=== PATIENT | female | born 1940 | race Caucasian/White ===

== ENCOUNTER 2023-03-25 13:48 | Emergency (ER) | payer MEDICARE, SELFPAY ==
[2023-03-25 14:04] VITALS: BP 132/59; PULSE 60; RESP 16; TEMP 36.6; O2SAT 96
--- NOTE | 2023-03-25 14:22 | ED.GENADULT ---
HPI - General Adult General Chief complaint: Unspecified Stated complaint: Constipation Source: patient, family and RN notes reviewed History of Present Illness HPI narrative: 82 yo F presents to urgent care [facility] complaints of constipation. Pt states her last BM was last week sometime. Pt is also reporting bright red rectal bleeding that started yesterday. Pt states this bleeding occurs every time she sits down on the toilet. Denies any abdominal pain, N/V, fevers, or chills. Pt is eating without difficulty. Last ate waffles this am. Related Data Home Medications Medication Instructions Recorded Confirmed cetirizine 10 mg tablet 10 mg PO DAILY 03/25/23 03/25/23 fluticasone fur. 100 mcg-umeclid 2 inh inhalation DAILY 03/25/23 03/25/23 62.5 mcg-vilant 25 mcg inhalat.powder (Trelegy Ellipta) gabapentin 300 mg capsule 300 mg PO TID 03/25/23 03/25/23 mirtazapine 15 mg tablet 15 mg PO DAILY 03/25/23 03/25/23 montelukast 10 mg tablet 10 mg PO DAILY 03/25/23 03/25/23 nadolol 40 mg tablet 40 mg PO BID 03/25/23 03/25/23 paroxetine HCl 20 mg tablet 20 mg PO DAILY 03/25/23 03/25/23 Allergies Allergy/AdvReac Type Severity Reaction Status Date / Time Penicillins Allergy Intermediate Rash Verified 03/25/23 14:28 Sulfa (Sulfonamide Allergy Intermediate Rash Verified 03/25/23 14:29 Antibiotics) Review of Systems Review of Systems: CONSTITUTIONAL: Denies fever, chills, or sweats. EYES: Denies visual changes, redness, or discharge. ENT: Denies otalgia and sore throat CARDIOVASCULAR: Denies chest pain, palpitations, or edema. RESPIRATORY: Denies cough or dyspnea. GASTROINTESTINAL: Denies abdominal pain, nausea, vomiting, or diarrhea. Reports constipation and rectal bleeding GENITOURINARY: Denies dysuria or hematuria. SKIN: Denies rash or itching. MUSCULOSKELETAL: Denies back pain, joint pain, or myalgia. NEUROLOGIC: Denies headache, numbness, or weakness. Pertinent positives per HPI. PMFSH Comments At the time of my signature, I reviewed and agree with the nursing past medical, surgical, social, and family history. There is no relevant family history pertinent to the patient complaint. Exam Narrative: GENERAL: This is a well-nourished, well-developed patient, in no apparent distress. HEAD: normocephalic, atraumatic. EYES: Sclera clear/white. Vision is grossly intact. EARS: External ears normal, auditory canals clear and without drainage. Hearing grossly intact. NOSE: External nose normal with no obvious nasal discharge, nares without redness, no rhinorrhea. THROAT: Mucous membranes moist, posterior pharynx clear. NECK: Neck supple, non-tender without lymphadenopathy, masses or thyromegaly. CARDIOVASCULAR: Regular rate and rhythm without murmurs, gallops, or rubs. RESPIRATORY: Clear to auscultation. Breath sounds equal bilaterally. No wheezes, rales, or rhonchi. GASTROINTESTINAL: Abdomen soft, non-tender, nondistended. Bowel sounds are absent. No hepato-splenomegaly, or palpable masses. No guarding. SKIN: warm, intact with no suspicious lesions or rash, good texture and turgor. NEURO: awake, alert, and oriented to person, place and time. There were no obvious focal neurologic abnormalities. Course Course Level of Care: Express Care Visit Vital Signs Vital signs: Vital Signs Temperature 97.9 F 03/25/23 14:04 Pulse Rate 60 03/25/23 14:04 Respiratory Rate 16 03/25/23 14:04 Blood Pressure 132/59 L 03/25/23 14:04 Pulse Oximetry 96 03/25/23 14:04 Oxygen Delivery Nasal Cannula 03/25/23 14:04 Oxygen Flow Rate 2.5 03/25/23 14:04 Temperature 97.9 F 03/25/23 14:04 Pulse Rate 60 03/25/23 14:04 Respiratory Rate 16 03/25/23 14:04 Blood Pressure 132/59 L 03/25/23 14:04 Pulse Oximetry 96 03/25/23 14:04 Oxygen Delivery Nasal Cannula 03/25/23 14:04 Oxygen Flow Rate 2.5 03/25/23 14:04 Reviewed Medical Decision Making MDM Narrative Medical decision making narrat
== END 2023-03-25 14:35 | disposition short-term general hospital (02) ==
PROVIDERS: Emergency Provider Nurse Practitioner Family; PCP Internal Medicine
DX: K62.5 Hemorrhage of anus and rectum (principal); K59.00 Constipation, unspecified
CPT/HCPCS: 99212; G0463

== ENCOUNTER 2023-12-18 16:30 | Inpatient (IN) | payer MEDICARE, SELFPAY ==
[2023-12-18] VITALS (9 sets, daily range): BP systolic 64–106; BP diastolic 38–52; PULSE 66–73; RESP 14–19; TEMP 36.3–36.7; O2SAT 97–100; BMI 21.3
--- NOTE | ~2023-12-18 | CT_ITS ---
Clinical Indication: Shortness of breath CT Scan of the Chest with Contrast: Technique: Contiguous sections were acquired throughout the chest after intravenous administration of 100 cc of Omnipaque 350. Dose reduction technique was used on this scan by utilizing automated expos ure control and iterative reconstruction technique. The dose-length product (DLP) was 187.15 mGy-cm. Findings: There is no evidence of any significant mediastinal, hilar or axillary lymphadenopathy. There is no f illing defect in the pulmonary arterial tree to suggest pulmonary embolus. There is no evidence of ao rtic dissection or aneurysm. There is extensive atherosclerotic change of the aorta and coronary gagandeep mahogany. There is no evidence of pleural or pericardial effusion. 6 mm left upper lobe pulmonary nodule present (axial image 53) this is. There is extensive bronchiect asis, especially the upper lobes. There is probable bibasilar atelectasis. There is extensive groundg lass opacity in the lower lobes, more patchy ground glass opacities in the upper lobes. There are foc al areas of somewhat nodular consolidation in the left lower lobe (image 70 for example), nonspecific .. Images through the upper abdomen reveal no abnormalities. Impression: No evidence of pulmonary embolus, aortic dissection, or aortic aneurysm. Extensive bronchiectasis, especially upper lobes. Extensive groundglass pulmonary opacity, with lower lobe predominance. Findings could reflect bronchi olitis, mild pulmonary edema, hypoventilatory change, asthma, or possibly related to chronic intersti tial disease. Several nodular opacities in the lungs, indeterminate. These could be related to atelectasis, or infe ction. Neoplasm difficult to completely exclude, especially in some of the larger nodule opacities wh ich measure up to 1 cm. Consider follow-up exam after interval therapy, or follow-up CT in 3 months t o reassess these nodules. Reviewed, dictated and finalized at location . R GUIDE Impression: No evidence of pulmonary embolus, aortic dissection, or aortic aneurysm. Extensive bronchiectasis, especially upper lobes. Extensive groundglass pulmonary opacity, with lower lobe predominance. Findings could reflect bronchiolitis, mild pulmonary edema, hypoventilatory change, ast hma, or possibly related to chronic interstitial disease. Several nodular opacities in the lungs, indeterminate. These could be related t o atelectasis, or infection. Neoplasm difficult to completely exclude, especial ly in some of the larger nodule opacities which measure up to 1 cm. Consider fo llow-up exam after interval therapy, or follow-up CT in 3 months to reassess th eros nodules.
--- NOTE | ~2023-12-18 | XR_ITS ---
EXAMINATION: XR chest 1V portable DATE: 12/23/2023 21:31 INDICATION: Cough and shortness of breath TECHNIQUE: frontal view of the chest was obtained. COMPARISON: Chest radiograph dated 12/18/2023 FINDINGS: Similar pattern of diffuse bilateral reticular and mild airspace opacities most prominent in the bila teral lower lung zones and in the paramediastinal upper lung zones. No pleural effusion or pneumothor ax. Heart size is normal. Cholecystectomy clips in right upper quadrant. IMPRESSION: 1. Persistent interstitial and airspace opacities in both lungs which differential would include electrical instrumentation technician sarabjit interstitial lung disease or more acute pulmonary edema or pneumonia. Reviewed, dictated and finalized at location A. E M ASSEMBLER IMPRESSION: 1. Persistent interstitial and airspace opacities in both lungs which different ial would include chronic interstitial lung disease or more acute pulmonary gurjit ma or pneumonia.
--- NOTE | ~2023-12-18 | XR_ITS ---
EXAMINATION: XR chest 1V portable Exam Date/Time: 12/18/2023 17:40 COMMERCIAL DRIVER HISTORY: weak Comparison: None. RESULT: Lines, tubes, and devices: None. Lungs and pleura: Moderate diffuse reticular opacities. Subsegmental right basilar airspace disease. Mild right lateral costophrenic angle blunting. Cardiomediastinal silhouette: Stable. Other: No acute osseous or upper abdominal finding. IMPRESSION: Subsegmental right basilar atelectasis/pneumonia. Possible small right pleural effusion. Interstitial lung disease, with more without interstitial edema. Reviewed, dictated and finalized at location K. ERCIAL DRIVER
--- NOTE | 2023-12-18 16:36 | ECG_ITS ---
Measurements Intervals [place] Rate: 73 P: 76 MD: 127 QRS: -5 QRSD: 73 T: 43 QT: 365 QTc: 403 Interpretive Statements SINUS RHYTHM INFERIOR INFARCT, AGE INDETERMINATE NONSPECIFIC ST & T-WAVE ABNORMALITY- ANTEROLAT/HIGH LAT LEADS BASELINE ARTIFACT- I, II, III, AVR, AVL, AVF, V2-V3 ABNORMAL ECG NO PREVIOUS ECG AVAILABLE FOR COMPARISON Electronically Signed On 12-18-2023 19:27:23 CAN TENDER by Rashel Main D.O.
[2023-12-18 16:48] LABS: Basophils Absolute Auto 0.1 K/mm3 (0.0-0.1); Basophils Percent Auto 0.4 % (0.2-1.2); Eosinophils Absolute Auto 0.3 K/mm3 (0-0.3); Eosinophils Percent Auto 1.7 % (0-4.4); Hematocrit 41.4 % (37.0-47.0); Hemoglobin 13.1 g/dL (12.0-15.0); Immature Granulocyte Percent A 0.6 % (0-0.5); Lymphocytes Absolute Auto 2.01 K/mm3 (0.9-3.2); Lymphocytes Percent Auto 12.4 % (18.3-44.2); Mean Corpuscular HGB Conc 31.6 g/dl (32-36); Mean Corpuscular Hemoglobin 30.7 pg (26-34); Mean Platelet Volume 9.8 fl (7.4-10.4); Monocytes Absolute Auto 2.1 K/mm3 (0.1-0.6); Neutrophils Absolute Auto 11.6 K/mm3 (1.3-6.7); Neutrophils Percent Auto 71.9 % (45.5-73.1); Platelet Count Result 331 k/mm3 (150-375); Red Blood Count 4.27 M/mm3 (4.2-5.4); Red Cell Distribution Width 12.8 % (11.5-14.5); White Blood Count 16.2 K/mm3 (4.5-10.0)
[2023-12-18 17:02] LABS: Alanine Aminotransferase 20 U/L (6-35); Albumin Level 3.8 g/dL (3.5-5.1); Alkaline Phosphatase 66 U/L (38-126); Anion Gap 7 mmol/L (8-16); Aspartate Amino Transferase 32 U/L (14-36); Bilirubin,Total 1.2 mg/dL (0.2-1.3); Blood Urea Nitrogen 43 mg/dL (7-17); Calcium 9.1 mg/dL (8.4-10.2); Carbon Dioxide 35 mmol/L (22-30); Chloride 91 mmol/L (98-107); Estimated CRCL calculation 28 ml/min; Estimated Glomerular Filt Rate 43; Glucose 111 mg/dL (65-110); Sodium 133 mmol/L (137-145)
[2023-12-18 17:12] LABS: Lactic Acid Reflex 2.1 mmol/L (0.7-2.0)
--- NOTE | 2023-12-18 17:20 | ED.GENADULT ---
HPI - General Adult General Chief complaint: Weakness Stated complaint: weakness Time Seen by Provider: 12/18/23 16:31 History of Present Illness HPI narrative: Patient is an 83-year-old female who presents ER with weakness. Unable stand up out of bed to use her Rollator today. Patient had recent diagnosis of pneumonia and was placed in rehab after hospitalization. No chest pain or chest pressure. No fevers chills or sweats. She does have some heart dyspnea. Blood pressure low her EMS and 70s. Currently 88/47. Related Data Home Medications Medication Instructions Recorded Confirmed budesonide 0.5 mg/2 mL suspension 0.5 mg inhalation DAILY 03/25/23 03/25/23 for nebulization cetirizine 10 mg tablet 10 mg PO DAILY 03/25/23 03/25/23 fluticasone fur. 100 mcg-umeclid 2 inh inhalation DAILY 03/25/23 03/25/23 62.5 mcg-vilant 25 mcg inhalat.powder (Trelegy Ellipta) formoterol fumarate 20 mcg/2 mL 2 ml inhalation BID 03/25/23 03/25/23 solution for nebulization (Perforomist) gabapentin 300 mg capsule 300 mg PO TID 03/25/23 03/25/23 mirtazapine 15 mg tablet 15 mg PO DAILY 03/25/23 03/25/23 montelukast 10 mg tablet 10 mg PO DAILY 03/25/23 03/25/23 nadolol 40 mg tablet 40 mg PO BID 03/25/23 03/25/23 paroxetine HCl 20 mg tablet 20 mg PO DAILY 03/25/23 03/25/23 revefenacin 175 mcg/3 mL solution 175 mcg inhalation DAILY 03/25/23 03/25/23 for nebulization (Arunai) Allergies Allergy/AdvReac Type Severity Reaction Status Date / Time Penicillins Allergy Intermediate Rash Verified 03/25/23 14:28 Sulfa (Sulfonamide Allergy Intermediate Rash Verified 03/25/23 14:29 Antibiotics) Review of Systems Review of Systems: All systems reviewed & are unremarkable except as noted in HPI and below Constitutional: Constitutional: Denies chills, Reports fatigue, Denies fever(s) and Reports weakness ENT: Denies nasal congestion and Denies sore throat Cardiovascular: Cardiovascular: Denies chest pain, Denies rapid heart rate and Denies radiating jaw, neck or arm pain Respiratory: Respiratory: Reports cough, Denies dyspnea and Denies wheezing Comments: chronically O2 dependent Gastrointestinal: Gastrointestinal: Reports no additional gastrointestinal complaints Genitourinary: Genitourinary: Reports no additional female genitourinary complaints PMFSH Past Medical History Medical History (Updated 12/18/23 @ 19:08 by Carmelo Sandhu MD) CHF (congestive heart failure) COPD (chronic obstructive pulmonary disease) Hypertension Myocardial infarction Paroxysmal A-fib Pulmonary hypertension Spinal stenosis Exam Narrative: GENERAL: Chronically ill-appearing, well-nourished, and in no acute distress. HEAD: Normocephalic, atraumatic. ENT: Mucous membranes moist. NECK: Supple. CHEST: Coarse rales with wheezing bilaterally. No respiratory distress. HEART: Regular rate and rhythm. Normal peripheral pulses. ABDOMEN: Soft, nontender, nondistended. EXTREMITIES: Normal range of motion. No edema. SKIN: Warm, dry, no rash. NEURO: Alert and oriented x3. PSYCH: Normal mood and affect. Course Course Emergency Course: Patient leak cautiously hydrated given history of heart failure. Patient is fluid responsive after 1 L and has blood pressure 106/47 mm Hg. She will be started on some maintenance fluids and admitted for observation and breathing treatments. Patient reports she is a DNR and would not want CPR, a ventilator, or central line should her condition deteriorate. Vital Signs Vital signs: Vital Signs Temperature 97.7 F 12/18/23 16:55 Pulse Rate 67 12/18/23 16:55 Respiratory Rate 18 12/18/23 16:55 Blood Pressure 64/45 L 12/18/23 16:55 Pulse Oximetry 98 12/18/23 16:55 Oxygen Delivery Nasal Cannula 12/18/23 16:55 Oxygen Flow Rate 3 12/18/23 16:55 Temperature 97.7 F 12/18/23 19:02 Pulse Rate 67 12/18/23 19:02 Respiratory Rate 15 12/18/23 19:02 Blood Pressure 10
[2023-12-18 17:27] LABS: NT Pro B Type Natriuretic Pept 1410 pg/mL (19.9-100)
[2023-12-18] MEDS: SODIUM CHLORIDE 0.9% IV 500 ML 999 ML IV CONT ×2 (17:28→18:33)
[2023-12-18 17:41] LABS: Appearance Urine Clear (Clear); Bacteria Urine None Seen /hpf; Bilirubin Urine Negative (Negative); Blood Urine Negative (Negative); Color Urine Yellow (Yellow); Glucose Urine UA 3+ mg/dL (Negative); Ketones Urine Negative (Negative); Leukocyte Esterase Ur Negative LEU/UL (Negative); Need Manual Microscopic Reviewed; Nitrate Urine Negative (Negative); Protein Urine Trace mg/dL (Negative); RBC Urine 0-2 /hpf (0-2); Specific Grav Ur 1.017 (1.001-1.035); Squamous Epithelial Cell Urine None seen /hpf (Few); Urobilinogen Urine 0.2 mg/dL (<2.0); WBC Urine 0-5 /hpf
[2023-12-18 17:42] LABS: Add Urine Microscopic? YES
[2023-12-18 17:55] LABS: Influenza A QL RT-PCR Negative (Negative); Influenza B QL RT-PCR Negative (Negative); RSV RNA, RT-PCR Negative (Negative); SARS-CoV-2 RNA PCR Negative (Negative)
--- NOTE | 2023-12-18 19:29 | PM.IMHP ---
H&P: HPI History of Present Illness Date/Time: 12/18/23 19:29 Chief Complaint: Generalized weakness Narrative: 83-year-old female presents to the ED with generalized weakness, she says she is unable to stand out of bed to use higher later today, she recent had a diagnosis of pneumonia was placed on route of the hospitalization, she reported occasional diarrhea, no abdominal pain, no fever chills. Reports poor oral intake and poor hydration. She was evaluated in the ER [place] [address], lactic acid of 2.1 with no specific findings on chest x-ray which was interpreted atelectasis versus pneumonia. She has been started on IV hydration, and a request for admission for further hydration was placed as patient blood pressure is borderline low Review of Systems Review of Systems: All systems reviewed & are unremarkable except as noted in HPI and below PMFSH Past Medical History Medical History (Updated 12/18/23 @ 21:25 by Batool Freeman MD) CHF (congestive heart failure) COPD (chronic obstructive pulmonary disease) Hypertension Myocardial infarction Paroxysmal A-fib Pulmonary hypertension Spinal stenosis Family History Family History (Updated 12/18/23 @ 20:57 by Vignesh Munson RN) Father Heart attack Mother Alzheimer's dementia Sibling Alzheimer's dementia Heart attack Social History Social History Smoking packs per day: 0.1 Smoking cigarettes per day: 2.0 Years smoked: 15 Smoking pack-years: 1.50 Smoking status: Former smoker Tobacco type: cigarettes Alcohol intake: never Substance use: never Do You Feel Safe in your Home?: Yes Lack of Transportation: No Lack of Food: Never True Current Housing: I Have Housing Concerned About Future Housing: No Difficulty Paying Gas/Electric Bills: No Difficulty Paying for Meds: No Currently Unemployed: No Education: Never Attended/Kindergarten Only Difficulty w/ Childcare or Family Care: No Spiritual care concerns: No Meds Home Medications and Allergies Home Medications Medication Instructions Recorded Confirmed Type cetirizine 10 mg tablet 10 mg PO DAILY 03/25/23 12/18/23 History fluticasone fur. 100 mcg-umeclid 2 inh inhalation DAILY 03/25/23 12/18/23 History 62.5 mcg-vilant 25 mcg inhalat.powder (Trelegy Ellipta) gabapentin 300 mg capsule 300 mg PO TID 03/25/23 12/18/23 History mirtazapine 15 mg tablet 30 mg PO DAILY 03/25/23 12/18/23 History montelukast 10 mg tablet 10 mg PO DAILY 03/25/23 12/18/23 History nadolol 40 mg tablet 40 mg PO BID 03/25/23 12/18/23 History paroxetine HCl 20 mg tablet 40 mg PO DAILY 03/25/23 12/18/23 History B12 1,000 mcg PO DAILY 12/18/23 12/18/23 History Daily Multivitamin 1 tablet PO DAILY 12/18/23 12/18/23 History Entresto 24 - 26 mg PO Q12H 12/18/23 12/18/23 History Jardiance 10 mg PO DAILY 12/18/23 12/18/23 History Mucinex 600 mg PO Q12H PRN Congestion 12/18/23 12/18/23 History Protonix 40 mg PO DAILY 12/18/23 12/18/23 History acetaminophen 650 mg PO Q8H PRN Pain (Scale 12/18/23 12/18/23 History Score 1-3) azelastine 137 mcg (0.1 %) nasal 137 mcg intranasal BID 12/18/23 12/18/23 History spray aerosol empagliflozin 10 mg tablet 10 mg PO DAILY 12/18/23 12/18/23 History (Jardiance) ipratropium-albuterol 0.5 - 3 mg inhalation QID 12/18/23 12/18/23 History megestrol 400 mg/10 mL (10 mL) 400 mg PO BID 12/18/23 12/18/23 History oral suspension metolazone 2.5 mg tablet 2.5 mg PO DAILY 12/18/23 12/18/23 History ondansetron 4 mg disintegrating 4 mg Q6-8H PRN Nausea And Vomiting 12/18/23 12/18/23 History tablet prednisone 10 mg tablet 10 mg PO TID 12/18/23 12/18/23 History Allergies Allergy/AdvReac Type Severity Reaction Status Date / Time Penicillins Allergy Intermediate Rash Verified 12/18/23 20:35 Sulfa (Sulfonamide Allergy Intermediate Rash Verified 12/18/23 20:35 Antibiotics) Vital Signs Vital Signs - 24 hr 12/18/23 16:55
[2023-12-18 20:03] LABS: Reflex Lactic Acid Yes or No Add Lactic
--- NOTE | 2023-12-18 20:15 | ADMGEN ---
This patient, Leonie Kiser, was admitted to Medical Room 246-. Patient/family oriented to hospital policies and general routines including ID bracelet, bed and alarms, visiting hours, pain management, procedures, bathroom and other care routines, personal items, smoking policy, room service/diet, and visiting hours. Information on how to activate the Rapid Response Team has been discussed. Patient/Family are encouraged to report perceived risks to care and to ask questions if they do not understand what they are told or what they should do.
[2023-12-18] MEDS: SODIUM CHLORIDE 0.9% IV 1,000 ML 150 ML IV CONT (21:22)
[2023-12-18] MEDS: levoFLOXacin 750 MG/D5W 150 ML 750 MG/150 ML BAG 100 MG IVPB (21:30)
[2023-12-18 22:15] LABS: Lactic Acid 1.2 mmol/L (0.7-2.0); Magnesium 2.2 mg/dL (1.6-2.3)
[2023-12-18 22:28] LABS: Troponin I 0.019 ng/mL (0.000-0.034)
[2023-12-18] MEDS: ACETAMINOPHEN 325 MG TABLET 650 MG PO (22:54)
[2023-12-19] VITALS (15 sets, daily range): BP systolic 93–107; BP diastolic 35–52; PULSE 66–84; RESP 12–18; TEMP 36.4–36.6; O2SAT 95–100
[2023-12-19] MEDS: CYANOCOBALAMIN 1,000 MCG TABLET 1000 MCG PO (08:28)
[2023-12-19] MEDS: SACUBITRIL/VALSARTAN 24-26 MG TABLET 1 TAB PO ×2 (08:28→20:06)
[2023-12-19] MEDS: MONTELUKAST SODIUM 10 MG TABLET PO (08:28)
[2023-12-19] MEDS: metOLazone 2.5 MG TABLET PO (08:28)
[2023-12-19] MEDS: EMPAGLIFLOZIN 10 MG TABLET PO (08:28)
[2023-12-19] MEDS: GABAPENTIN 300 MG CAPSULE PO ×3 (08:28→16:16)
[2023-12-19] MEDS: MEGESTROL ACETATE (*CHEMO) ORAL SUSP 40 MG/ML SYR 400 MG PO ×2 (08:28→16:16)
[2023-12-19] MEDS: LORATADINE 10 MG TABLET PO (08:28)
[2023-12-19] MEDS: PANTOPRAZOLE 40 MG TABLET PO (08:28)
[2023-12-19] MEDS: ACETAMINOPHEN 325 MG TABLET 650 MG PO (08:36)
--- NOTE | 2023-12-19 08:50 | PM.IMPN ---
Progress Note: A&P Assessment and Plan (1) Pneumonia: Code(s): J18.9 - Pneumonia, unspecified organism Status: Acute Assessment and Plan: Recent diagnosis for pneumonia CXR showing subsegmental right basilar atelectasis/pneumonia, interstitial lung disease. Patient started on Levaquin while in ER Continue neb treatments Currently on 3L NC (2) Abnormal chest x-ray: Code(s): R93.89 - Abnormal findings on diagnostic imaging of other specified body structures Status: Acute Assessment and Plan: see above (3) CHF (congestive heart failure): Code(s): I50.9 - Heart failure, unspecified Status: Chronic Assessment and Plan: Restarted Jardiance, Metolazone (4) COPD (chronic obstructive pulmonary disease): Code(s): J44.9 - Chronic obstructive pulmonary disease, unspecified Status: Chronic Assessment and Plan: Continue nebulizer breathing treatments (5) Dehydration: Code(s): E86.0 - Dehydration Status: Acute Assessment and Plan: Patient reported not eating or drinking fluids at home B/P initially 54/45, Na+ 133, Chloride 91 Patient given 2L NS and started on IVF (6) Generalized weakness: Code(s): R53.1 - Weakness Status: Acute Assessment and Plan: PT and OT ordered (7) Hypertension: Code(s): I10 - Essential (primary) hypertension Status: Chronic Assessment and Plan: B/P 92/38-107/47 Nadolol on hold Time Spent With Patient Time with patient: 25 - 35 minutes Subjective Date/time seen: 12/19/23 08:50 Interval history: This is an 83 year old female with a significant past medical history of CHF, COPD, HTN, [place], Paroxysmal A-fib, pulmonary hypertension, spinal stenosis who presented to the hospital with complaints of generalized weakness. She was recently diagnosed with pneumonia and reports decreased appetite and fatigue. She was hypotensive on admission, however responded well to fluid resuscitation. Work up in hospital includes CXR which revealed subsegmental right basilar atelectasis vrs pneumonia, interstitial lung disease without edema. Labs revealed WBC 16.2,Na+ 133, Chloride 91, BUN 43, Creatitinine 1.20, eGFR 43, creatinine clearance 28, Lactic acid 2.1>1.2, Liver enzymes were normal, Magnesium 2.2, Troponin negative, proBNP 1410. UA shown 3+ glucose, otherwise unremarkable. Respiratory panel negative for Flu, RSV, Covid. Blood cultures obtained and are pending. Patient was given 2L NS, started on IVF, given zofran, and started on Levaquin in the ER. On examination today patient is alert and oriented x3, sitting in the chair. She denies any fever, chills, chest pain, abdominal pain, nausea, vomiting, diarrhea, or headache. She endorses lightheadedness and dizziness when getting up, shortness of breath and a non productive cough. VSS, she is afebrile, currently on 3L NC. Lungs today course throughout bilaterally. Review of Systems Review of Systems: All systems reviewed & are unremarkable except as noted in HPI and below Constitutional: Constitutional: Reports as per HPI and Reports no additional constitutional complaints Eyes: Eyes: Reports as per HPI and Reports no additional eye complaints ENT: Reports system reviewed and no additional complaints, except as documented and Reports as per HPI Cardiovascular: Cardiovascular: Reports as per HPI and Reports no additional cardiovascular complaints Respiratory: Respiratory: Reports as per HPI and Reports no additional respiratory complaints Gastrointestinal: Gastrointestinal: Reports as per HPI and Reports no additional gastrointestinal complaints Genitourinary: Genitourinary: Reports no additional female genitourinary complaints and Reports as per HPI Musculoskeletal: Musculoskeletal: Reports no additional musculoskeletal complaints and Reports as per HPI Integumentary/Breasts: Skin/Breast: Reports system reviewed and no additio
[2023-12-19] MEDS: FLUTICASONE/UMECLIDIN/VILANTER 100-62.5-25 MCG ELLIPTA 1 PUFF INHALATION (09:54)
[2023-12-19] MEDS: IPRATROPIUM 0.5 MG/ALBUTEROL SULFATE 2.5 MG AMPUL.NEB 3 ML INHALATION ×3 (09:54→20:30)
[2023-12-19] MEDS: MIRTAZAPINE 30 MG TABLET PO (20:06)
[2023-12-19] MEDS: PARoxetine 20 MG TABLET 40 MG PO (20:06)
[2023-12-19] MEDS: AZELASTINE HCL NASAL 0.1% 137 MCG/SPR 30 ML BTL 1 SPRAY NASAL (20:07)
--- NOTE | 2023-12-19 21:14 | PCRCNOTE ---
Patient does not want to be awakened for her 0200 updraft treatment. RT instructed pt to call RN if sob occurs. Pt states she only takes breathing treatments a couple of times while awake at home.
[2023-12-20] VITALS (15 sets, daily range): BP systolic 102–119; BP diastolic 48–55; PULSE 69–86; RESP 16–18; TEMP 36.5–37; O2SAT 90–98; BMI 21.3
[2023-12-20 06:12] LABS: Basophils Percent Auto 0.3 % (0.2-1.2); Eosinophils Absolute Auto 0.2 K/mm3 (0-0.3); Eosinophils Percent Auto 1.3 % (0-4.4); Hematocrit 38.3 % (37.0-47.0); Hemoglobin 12.3 g/dL (12.0-15.0); Immature Granulocyte Absolute 0.07 K/mm3 (0.00-0.031); Immature Granulocyte Percent A 0.5 % (0-0.5); Lymphocytes Absolute Auto 2.95 K/mm3 (0.9-3.2); Mean Corpuscular HGB Conc 32.1 g/dl (32-36); Mean Corpuscular Hemoglobin 31.5 pg (26-34); Mean Corpuscular Volume 98.2 fl (80-100); Mean Platelet Volume 9.5 fl (7.4-10.4); Monocytes Absolute Auto 2.1 K/mm3 (0.1-0.6); Monocytes Percent Auto 13.9 % (2.6-8.5); Neutrophils Absolute Auto 9.5 K/mm3 (1.3-6.7); Platelet Count Result 352 k/mm3 (150-375); Red Cell Distribution Width 12.9 % (11.5-14.5); White Blood Count 14.8 K/mm3 (4.5-10.0)
[2023-12-20 06:48] LABS: Alanine Aminotransferase 17 U/L (6-35); Albumin Level 3.4 g/dL (3.5-5.1); Alkaline Phosphatase 73 U/L (38-126); Anion Gap 7 mmol/L (8-16); Aspartate Amino Transferase 26 U/L (14-36); Bilirubin,Total 0.5 mg/dL (0.2-1.3); Blood Urea Nitrogen 23 mg/dL (7-17); Calcium 8.4 mg/dL (8.4-10.2); Carbon Dioxide 30 mmol/L (22-30); Chloride 101 mmol/L (98-107); Estimated CRCL calculation 44 ml/min; Estimated Glomerular Filt Rate > 60; Glucose 93 mg/dL (65-110); Magnesium 2.2 mg/dL (1.6-2.3); Potassium 3.9 mmol/L (3.4-5.0); Sodium 138 mmol/L (137-145)
--- NOTE | 2023-12-20 07:23 | P.PNIM_ITS ---
Progress Note: A&P Assessment and Plan (1) Pneumonia: Code(s): J18.9 - Pneumonia, unspecified organism Status: Acute Assessment and Plan: * Recent diagnosis for pneumonia * CXR showing subsegmental right basilar atelectasis/pneumonia, interstitial lung disease. * Patient given 1 time dose of IV Levaquin in the ER, doses * Continue neb treatments * Currently on 3L NC * Continue Mucinex, Azelastine, and Trelegy inhaler 12/20/23: * Continue oral Levaquin * Continue current treatment plan (2) Abnormal chest x-ray: Code(s): R93.89 - Abnormal findings on diagnostic imaging of other specified body structures Status: Acute Assessment and Plan: * see above (3) CHF (congestive heart failure): Code(s): I50.9 - Heart failure, unspecified Status: Chronic Assessment and Plan: 12/19/23: * Continue Jardiance, Metolazone, and Sacubitril/Valsartan 12/20/23: * No change to current treatment plan (4) COPD (chronic obstructive pulmonary disease): Code(s): J44.9 - Chronic obstructive pulmonary disease, unspecified Status: Chronic Assessment and Plan: 12/19/23: * Continue nebulizer breathing treatments 12/20/23: * No change to current treatment plan (5) Dehydration: Code(s): E86.0 - Dehydration Status: Acute Assessment and Plan: 12/19/23: * Patient reported not eating or drinking fluids at home * B/P initially 54/45, Na+ 133, Chloride 91 * Patient given 2L NS while in ER and started on IVF 12/20/23: * Encourage food and fluid * continue IVF * No change to current treatment plan (6) Generalized weakness: Code(s): R53.1 - Weakness Status: Acute Assessment and Plan: 12/19/23: * PT and OT ordered 12/20/23: * No change to current treatment plan (7) Hypertension: Code(s): I10 - Essential (primary) hypertension Status: Chronic Assessment and Plan: 12/19/23: * B/P still labile * Continue to hold Nadolol 12/20/23: * No change to current treatment plan Time Spent With Patient Time with patient: 15 - 25 minutes Subjective Date/time seen: 12/20/23 07:23 Interval history: 12/19/23: This is an 83 year old female with a significant past medical history of CHF, COPD, HTN, [place], Paroxysmal A-fib, pulmonary hypertension, spinal stenosis who presented to the hospital with complaints of generalized weakness. She was recently diagnosed with pneumonia and reports decreased appetite and fatigue. She was hypotensive on admission, however responded well to fluid resuscitation. Work up in hospital includes CXR which revealed subsegmental right basilar atelectasis vrs pneumonia, interstitial lung disease without edema. Labs revealed WBC 16.2,Na+ 133, Chloride 91, BUN 43, Creatinine 1.20, eGFR 43, creatinine clearance 28, Lactic acid 2.1>1.2, Liver enzymes were normal, Magnesium 2.2, Troponin negative, proBNP 1410. UA shown 3+ glucose, otherwise unremarkable. Respiratory panel negative for Flu, RSV, Covid. Blood cultures obtained and are pending. Patient was given 2L NS, started on IVF, given zofran, and started on Levaquin in the ER. On examination today patient is alert and oriented x3, sitting in the chair. She denies any fever, chills, chest pain, abdominal pain, nausea, vomiting, diarrhea, or headache. She endorses lightheadedness and dizziness when getting up, shortness of breath and a non productive cough. VSS, she is afebrile, currently on 3L NC. Lungs today course throughout bilaterally. 12/20/23: On examin
--- NOTE | 2023-12-20 07:23 | PM.IMPN ---
Progress Note: A&P Assessment and Plan (1) Pneumonia: Code(s): J18.9 - Pneumonia, unspecified organism Status: Acute Assessment and Plan: Recent diagnosis for pneumonia CXR showing subsegmental right basilar atelectasis/pneumonia, interstitial lung disease. Patient given 1 time dose of IV Levaquin in the ER, doses Continue neb treatments Currently on 3L NC Continue Mucinex, Azelastine, and Trelegy inhaler 12/20/23: Continue oral Levaquin Continue current treatment plan (2) Abnormal chest x-ray: Code(s): R93.89 - Abnormal findings on diagnostic imaging of other specified body structures Status: Acute Assessment and Plan: see above (3) CHF (congestive heart failure): Code(s): I50.9 - Heart failure, unspecified Status: Chronic Assessment and Plan: 12/19/23: Continue Jardiance, Metolazone, and Sacubitril/Valsartan 12/20/23: No change to current treatment plan (4) COPD (chronic obstructive pulmonary disease): Code(s): J44.9 - Chronic obstructive pulmonary disease, unspecified Status: Chronic Assessment and Plan: 12/19/23: Continue nebulizer breathing treatments 12/20/23: No change to current treatment plan (5) Dehydration: Code(s): E86.0 - Dehydration Status: Acute Assessment and Plan: 12/19/23: Patient reported not eating or drinking fluids at home B/P initially 54/45, Na+ 133, Chloride 91 Patient given 2L NS while in ER and started on IVF 12/20/23: Encourage food and fluid continue IVF No change to current treatment plan (6) Generalized weakness: Code(s): R53.1 - Weakness Status: Acute Assessment and Plan: 12/19/23: PT and OT ordered 12/20/23: No change to current treatment plan (7) Hypertension: Code(s): I10 - Essential (primary) hypertension Status: Chronic Assessment and Plan: 12/19/23: B/P still labile Continue to hold Nadolol 12/20/23: No change to current treatment plan Time Spent With Patient Time with patient: 15 - 25 minutes Subjective Date/time seen: 12/20/23 07:23 Interval history: 12/19/23: This is an 83 year old female with a significant past medical history of CHF, COPD, HTN, [place], Paroxysmal A-fib, pulmonary hypertension, spinal stenosis who presented to the hospital with complaints of generalized weakness. She was recently diagnosed with pneumonia and reports decreased appetite and fatigue. She was hypotensive on admission, however responded well to fluid resuscitation. Work up in hospital includes CXR which revealed subsegmental right basilar atelectasis vrs pneumonia, interstitial lung disease without edema. Labs revealed WBC 16.2,Na+ 133, Chloride 91, BUN 43, Creatinine 1.20, eGFR 43, creatinine clearance 28, Lactic acid 2.1>1.2, Liver enzymes were normal, Magnesium 2.2, Troponin negative, proBNP 1410. UA shown 3+ glucose, otherwise unremarkable. Respiratory panel negative for Flu, RSV, Covid. Blood cultures obtained and are pending. Patient was given 2L NS, started on IVF, given zofran, and started on Levaquin in the ER. On examination today patient is alert and oriented x3, sitting in the chair. She denies any fever, chills, chest pain, abdominal pain, nausea, vomiting, diarrhea, or headache. She endorses lightheadedness and dizziness when getting up, shortness of breath and a non productive cough. VSS, she is afebrile, currently on 3L NC. Lungs today course throughout bilaterally. 12/20/23: On examination today patient is still reporting that she does not feel good. She states she did not sleep well because she had to get up and urinate often. Lungs today sound a lot better. She still has some crackles in the bases. VSS, she is afebrile, currently on 3L NC. Labs today reveal WBC 14.8, Albumin 3.4, otherwise essentially unremarkable. Blood cultures showing no growth on preliminary read. Continue Levaquin oral for a total of 5 days. Review o
[2023-12-20] MEDS: SACUBITRIL/VALSARTAN 24-26 MG TABLET 1 TAB PO ×2 (08:10→20:55)
[2023-12-20] MEDS: GABAPENTIN 300 MG CAPSULE PO ×3 (08:10→16:55)
[2023-12-20] MEDS: LORATADINE 10 MG TABLET PO (08:10)
[2023-12-20] MEDS: metOLazone 2.5 MG TABLET PO (08:10)
[2023-12-20] MEDS: MONTELUKAST SODIUM 10 MG TABLET PO (08:10)
[2023-12-20] MEDS: PANTOPRAZOLE 40 MG TABLET PO (08:10)
[2023-12-20] MEDS: MEGESTROL ACETATE (*CHEMO) ORAL SUSP 40 MG/ML SYR 400 MG PO ×2 (08:11→16:55)
[2023-12-20] MEDS: CYANOCOBALAMIN 1,000 MCG TABLET 1000 MCG PO (08:11)
[2023-12-20] MEDS: EMPAGLIFLOZIN 10 MG TABLET PO (08:11)
[2023-12-20] MEDS: ENOXAPARIN 40 MG/0.4 ML SYRINGE SUB-Q (08:11)
[2023-12-20] MEDS: FLUTICASONE/UMECLIDIN/VILANTER 100-62.5-25 MCG ELLIPTA 1 PUFF INHALATION (09:47)
[2023-12-20] MEDS: IPRATROPIUM 0.5 MG/ALBUTEROL SULFATE 2.5 MG AMPUL.NEB 3 ML INHALATION ×3 (09:47→20:09)
[2023-12-20] MEDS: ACETAMINOPHEN 325 MG TABLET 650 MG PO ×2 (12:01→23:47)
[2023-12-20] MEDS: AZELASTINE HCL NASAL 0.1% 137 MCG/SPR 30 ML BTL 1 SPRAY NASAL (20:54)
[2023-12-20] MEDS: MIRTAZAPINE 30 MG TABLET PO (20:54)
[2023-12-20] MEDS: levoFLOXacin 750 MG TABLET PO (20:55)
[2023-12-20] MEDS: PARoxetine 20 MG TABLET 40 MG PO (20:55)
[2023-12-21] VITALS (15 sets, daily range): BP systolic 96–113; BP diastolic 49–60; PULSE 72–98; RESP 12–20; TEMP 35.9–36.5; O2SAT 96–99
[2023-12-21] MEDS: IPRATROPIUM 0.5 MG/ALBUTEROL SULFATE 2.5 MG AMPUL.NEB 3 ML INHALATION ×4 (02:14→20:43)
[2023-12-21 06:02] LABS: Basophils Percent Auto 0.2 % (0.2-1.2); Eosinophils Absolute Auto 0.2 K/mm3 (0-0.3); Eosinophils Percent Auto 1.6 % (0-4.4); Hemoglobin 11.8 g/dL (12.0-15.0); Immature Granulocyte Absolute 0.06 K/mm3 (0.00-0.031); Immature Granulocyte Percent A 0.5 % (0-0.5); Lymphocytes Absolute Auto 2.57 K/mm3 (0.9-3.2); Lymphocytes Percent Auto 20.3 % (18.3-44.2); Mean Corpuscular HGB Conc 31.9 g/dl (32-36); Mean Corpuscular Hemoglobin 31.2 pg (26-34); Mean Corpuscular Volume 97.9 fl (80-100); Mean Platelet Volume 9.2 fl (7.4-10.4); Monocytes Absolute Auto 1.6 K/mm3 (0.1-0.6); Monocytes Percent Auto 12.8 % (2.6-8.5); Neutrophils Absolute Auto 8.2 K/mm3 (1.3-6.7); Neutrophils Percent Auto 64.6 % (45.5-73.1); Platelet Count Result 338 k/mm3 (150-375); Red Blood Count 3.78 M/mm3 (4.2-5.4); Red Cell Distribution Width 13.1 % (11.5-14.5); White Blood Count 12.7 K/mm3 (4.5-10.0)
[2023-12-21 06:12] LABS: Alanine Aminotransferase 15 U/L (6-35); Albumin Level 3.3 g/dL (3.5-5.1); Alkaline Phosphatase 72 U/L (38-126); Anion Gap 4 mmol/L (8-16); Aspartate Amino Transferase 27 U/L (14-36); Bilirubin,Total 0.4 mg/dL (0.2-1.3); Blood Urea Nitrogen 17 mg/dL (7-17); Calcium 8.4 mg/dL (8.4-10.2); Carbon Dioxide 34 mmol/L (22-30); Chloride 101 mmol/L (98-107); Estimated CRCL calculation 44 ml/min; Estimated Glomerular Filt Rate > 60; Glucose 106 mg/dL (65-110); Potassium 3.7 mmol/L (3.4-5.0); Sodium 139 mmol/L (137-145)
[2023-12-21] MEDS: FLUTICASONE/UMECLIDIN/VILANTER 100-62.5-25 MCG ELLIPTA 1 PUFF INHALATION (07:48)
[2023-12-21] MEDS: CYANOCOBALAMIN 1,000 MCG TABLET 1000 MCG PO (09:25)
[2023-12-21] MEDS: metOLazone 2.5 MG TABLET PO (09:25)
[2023-12-21] MEDS: EMPAGLIFLOZIN 10 MG TABLET PO (09:25)
[2023-12-21] MEDS: MEGESTROL ACETATE (*CHEMO) ORAL SUSP 40 MG/ML SYR 400 MG PO ×2 (09:26→17:21)
[2023-12-21] MEDS: GABAPENTIN 300 MG CAPSULE PO ×3 (09:26→17:21)
[2023-12-21] MEDS: ENOXAPARIN 40 MG/0.4 ML SYRINGE SUB-Q (09:26)
[2023-12-21] MEDS: LORATADINE 10 MG TABLET PO (09:26)
[2023-12-21] MEDS: PANTOPRAZOLE 40 MG TABLET PO (09:26)
[2023-12-21] MEDS: AZELASTINE HCL NASAL 0.1% 137 MCG/SPR 30 ML BTL 1 SPRAY NASAL ×2 (09:26→20:17)
[2023-12-21] MEDS: MONTELUKAST SODIUM 10 MG TABLET PO (09:26)
[2023-12-21] MEDS: SACUBITRIL/VALSARTAN 24-26 MG TABLET 1 TAB PO ×2 (09:26→20:17)
--- NOTE | 2023-12-21 10:53 | P.CDI_ITS ---
CDI Query Clarification Request BMI 21.3 Nutritional Diagnostic Statement Severe protein calorie malnutrition as related to inadequate protein-energy intake with increased protein-energy needs in setting of chronic disease (COPD) as evidenced by significant weight loss of 13% (20 lbs) in 3 months and poor oral intake for > 1-2 months. Please refer to the comprehensive nutrition assessment or further information. Please clarify severity of protein calorie malnutrition if known: * Mild * Moderate * Severe * Other/Unspecified <Rocio Pisano RN - Last Filed: 12/21/23 10:59> Clarified Diagnosis Clarified Diagnosis: Severe protein calorie malnutrition <Christine Good APRN - Last Filed: 12/21/23 15:51>
--- NOTE | 2023-12-21 11:03 | P.CDI_ITS ---
unknown at this time. CDI Query Clarification Request Documented history of CHF. CHF noted in the assessment and plan. Elevated BNP on 12/18/23 lab work. Patient receiving Entresto and Metolazone. Entresto and Metolazone listed as home medications. Chest Xray notes interstitial edema. Respiratory assessment notes crackles present. Please specify type and acuity of heart failure if known. * Acute * Chronic * Acute on Chronic * Unknown * Systolic * Diastolic * Combined Systolic and Diastolic * Unknown
--- NOTE | 2023-12-21 15:51 | P.PNIM_ITS ---
Progress Note: A&P Assessment and Plan (1) Pneumonia: Code(s): J18.9 - Pneumonia, unspecified organism Status: Acute Assessment and Plan: * Recent diagnosis for pneumonia * CXR showing subsegmental right basilar atelectasis/pneumonia, interstitial lung disease. * Patient given 1 time dose of IV Levaquin in the ER, doses * Continue neb treatments * Currently on 3L NC * Continue Mucinex, Azelastine, and Trelegy inhaler 12/20/23: * Continue oral Levaquin * Continue current treatment plan 12/21/23: * Continue with current treatment plan. (2) Abnormal chest x-ray: Code(s): R93.89 - Abnormal findings on diagnostic imaging of other specified body structures Status: Acute Assessment and Plan: * see above (3) CHF (congestive heart failure): Code(s): I50.9 - Heart failure, unspecified Status: Chronic Assessment and Plan: 12/19/23: * Continue Jardiance, Metolazone, and Sacubitril/Valsartan 12/20/23: * No change to current treatment plan (4) COPD (chronic obstructive pulmonary disease): Code(s): J44.9 - Chronic obstructive pulmonary disease, unspecified Status: Chronic Assessment and Plan: 12/19/23: * Continue nebulizer breathing treatments 12/20/23: * No change to current treatment plan (5) Dehydration: Code(s): E86.0 - Dehydration Status: Acute Assessment and Plan: 12/19/23: * Patient reported not eating or drinking fluids at home * B/P initially 54/45, Na+ 133, Chloride 91 * Patient given 2L NS while in ER and started on IVF 12/20/23: * Encourage food and fluid * continue IVF * No change to current treatment plan 12/21/23: * Continue with current treatment plan (6) Generalized weakness: Code(s): R53.1 - Weakness Status: Acute Assessment and Plan: 12/19/23: * PT and OT ordered 12/20/23: * No change to current treatment plan (7) Hypertension: Code(s): I10 - Essential (primary) hypertension Status: Chronic Assessment and Plan: 12/19/23: * B/P still labile * Continue to hold Nadolol 12/20/23: * No change to current treatment plan Time Spent With Patient Time with patient: 25 - 35 minutes Subjective Date/time seen: 12/21/23 15:51 Interval history: 12/19/23: This is an 83 year old female with a significant past medical history of CHF, COPD, HTN, [place], Paroxysmal A-fib, pulmonary hypertension, spinal stenosis who presented to the hospital with complaints of generalized weakness. She was recently diagnosed with pneumonia and reports decreased appetite and fatigue. She was hypotensive on admission, however responded well to fluid resuscitation. Work up in hospital includes CXR which revealed subsegmental right basilar atelectasis vrs pneumonia, interstitial lung disease without edema. Labs revealed WBC 16.2,Na+ 133, Chloride 91, BUN 43, Creatinine 1.20, eGFR 43, creatinine clearance 28, Lactic acid 2.1>1.2, Liver enzymes were normal, Magnesium 2.2, Troponin negative, proBNP 1410. UA shown 3+ glucose, otherwise unremarkable. Respiratory panel negative for Flu, RSV, Covid. Blood cultures obtained and are pending. Patient was given 2L NS, started on IVF, given zofran, and started on Levaquin in the ER. On examination today patient is alert and oriented x3, sitting in the chair. She denies any fever, chills, chest pain, abdominal pain, nausea, vomiting, diarrhea, or headache. She endorses lightheadedness and dizziness when getting up, shortness of breath and a non productive c
--- NOTE | 2023-12-21 15:51 | PM.IMPN ---
Progress Note: A&P Assessment and Plan (1) Pneumonia: Code(s): J18.9 - Pneumonia, unspecified organism Status: Acute Assessment and Plan: Recent diagnosis for pneumonia CXR showing subsegmental right basilar atelectasis/pneumonia, interstitial lung disease. Patient given 1 time dose of IV Levaquin in the ER, doses Continue neb treatments Currently on 3L NC Continue Mucinex, Azelastine, and Trelegy inhaler 12/20/23: Continue oral Levaquin Continue current treatment plan 12/21/23: Continue with current treatment plan. (2) Abnormal chest x-ray: Code(s): R93.89 - Abnormal findings on diagnostic imaging of other specified body structures Status: Acute Assessment and Plan: see above (3) CHF (congestive heart failure): Code(s): I50.9 - Heart failure, unspecified Status: Chronic Assessment and Plan: 12/19/23: Continue Jardiance, Metolazone, and Sacubitril/Valsartan 12/20/23: No change to current treatment plan (4) COPD (chronic obstructive pulmonary disease): Code(s): J44.9 - Chronic obstructive pulmonary disease, unspecified Status: Chronic Assessment and Plan: 12/19/23: Continue nebulizer breathing treatments 12/20/23: No change to current treatment plan (5) Dehydration: Code(s): E86.0 - Dehydration Status: Acute Assessment and Plan: 12/19/23: Patient reported not eating or drinking fluids at home B/P initially 54/45, Na+ 133, Chloride 91 Patient given 2L NS while in ER and started on IVF 12/20/23: Encourage food and fluid continue IVF No change to current treatment plan 12/21/23: Continue with current treatment plan (6) Generalized weakness: Code(s): R53.1 - Weakness Status: Acute Assessment and Plan: 12/19/23: PT and OT ordered 12/20/23: No change to current treatment plan (7) Hypertension: Code(s): I10 - Essential (primary) hypertension Status: Chronic Assessment and Plan: 12/19/23: B/P still labile Continue to hold Nadolol 12/20/23: No change to current treatment plan Time Spent With Patient Time with patient: 25 - 35 minutes Subjective Date/time seen: 12/21/23 15:51 Interval history: 12/19/23: This is an 83 year old female with a significant past medical history of CHF, COPD, HTN, [place], Paroxysmal A-fib, pulmonary hypertension, spinal stenosis who presented to the hospital with complaints of generalized weakness. She was recently diagnosed with pneumonia and reports decreased appetite and fatigue. She was hypotensive on admission, however responded well to fluid resuscitation. Work up in hospital includes CXR which revealed subsegmental right basilar atelectasis vrs pneumonia, interstitial lung disease without edema. Labs revealed WBC 16.2,Na+ 133, Chloride 91, BUN 43, Creatinine 1.20, eGFR 43, creatinine clearance 28, Lactic acid 2.1>1.2, Liver enzymes were normal, Magnesium 2.2, Troponin negative, proBNP 1410. UA shown 3+ glucose, otherwise unremarkable. Respiratory panel negative for Flu, RSV, Covid. Blood cultures obtained and are pending. Patient was given 2L NS, started on IVF, given zofran, and started on Levaquin in the ER. On examination today patient is alert and oriented x3, sitting in the chair. She denies any fever, chills, chest pain, abdominal pain, nausea, vomiting, diarrhea, or headache. She endorses lightheadedness and dizziness when getting up, shortness of breath and a non productive cough. VSS, she is afebrile, currently on 3L NC. Lungs today course throughout bilaterally. 12/20/23: On examination today patient is still reporting that she does not feel good. She states she did not sleep well because she had to get up and urinate often. Lungs today sound a lot better. She still has some crackles in the bases. VSS, she is afebrile, currently on 3L NC. Labs today reveal WBC 14.8, Albumin 3.4, otherwise essentially unremarkable. Blood cu
[2023-12-21] MEDS: PARoxetine 20 MG TABLET 40 MG PO (20:17)
[2023-12-21] MEDS: MIRTAZAPINE 30 MG TABLET PO (20:17)
[2023-12-22] VITALS (14 sets, daily range): BP systolic 101–112; BP diastolic 49–54; PULSE 84–96; RESP 16–18; TEMP 36.2–36.4; O2SAT 95–100
[2023-12-22] MEDS: IPRATROPIUM 0.5 MG/ALBUTEROL SULFATE 2.5 MG AMPUL.NEB 3 ML INHALATION ×4 (02:53→19:26)
[2023-12-22 06:12] LABS: Basophils Percent Auto 0.3 % (0.2-1.2); Eosinophils Absolute Auto 0.2 K/mm3 (0-0.3); Eosinophils Percent Auto 1.4 % (0-4.4); Hematocrit 40.2 % (37.0-47.0); Hemoglobin 12.6 g/dL (12.0-15.0); Immature Granulocyte Absolute 0.06 K/mm3 (0.00-0.031); Immature Granulocyte Percent A 0.4 % (0-0.5); Lymphocytes Absolute Auto 3.32 K/mm3 (0.9-3.2); Lymphocytes Percent Auto 22.9 % (18.3-44.2); Mean Corpuscular HGB Conc 31.3 g/dl (32-36); Mean Corpuscular Hemoglobin 31.2 pg (26-34); Mean Corpuscular Volume 99.5 fl (80-100); Mean Platelet Volume 9.2 fl (7.4-10.4); Monocytes Absolute Auto 1.6 K/mm3 (0.1-0.6); Neutrophils Absolute Auto 9.3 K/mm3 (1.3-6.7); Platelet Count Result 360 k/mm3 (150-375); Red Blood Count 4.04 M/mm3 (4.2-5.4); Red Cell Distribution Width 12.9 % (11.5-14.5); White Blood Count 14.5 K/mm3 (4.5-10.0)
[2023-12-22 06:36] LABS: Alanine Aminotransferase 16 U/L (6-35); Albumin Level 3.4 g/dL (3.5-5.1); Alkaline Phosphatase 72 U/L (38-126); Anion Gap 6 mmol/L (8-16); Aspartate Amino Transferase 27 U/L (14-36); Bilirubin,Total 0.4 mg/dL (0.2-1.3); Blood Urea Nitrogen 18 mg/dL (7-17); Calcium 8.7 mg/dL (8.4-10.2); Carbon Dioxide 33 mmol/L (22-30); Chloride 100 mmol/L (98-107); Estimated CRCL calculation 44 ml/min; Estimated Glomerular Filt Rate > 60; Glucose 117 mg/dL (65-110); Potassium 4.2 mmol/L (3.4-5.0); Sodium 139 mmol/L (137-145)
[2023-12-22] MEDS: FLUTICASONE/UMECLIDIN/VILANTER 100-62.5-25 MCG ELLIPTA 1 PUFF INHALATION (08:12)
[2023-12-22] MEDS: metOLazone 2.5 MG TABLET PO (09:07)
[2023-12-22] MEDS: GABAPENTIN 300 MG CAPSULE PO ×3 (09:07→16:56)
[2023-12-22] MEDS: PANTOPRAZOLE 40 MG TABLET PO (09:07)
[2023-12-22] MEDS: EMPAGLIFLOZIN 10 MG TABLET PO (09:07)
[2023-12-22] MEDS: SACUBITRIL/VALSARTAN 24-26 MG TABLET 1 TAB PO ×2 (09:07→20:37)
[2023-12-22] MEDS: MONTELUKAST SODIUM 10 MG TABLET PO (09:07)
[2023-12-22] MEDS: LORATADINE 10 MG TABLET PO (09:07)
[2023-12-22] MEDS: ENOXAPARIN 40 MG/0.4 ML SYRINGE SUB-Q (09:08)
[2023-12-22] MEDS: CYANOCOBALAMIN 1,000 MCG TABLET 1000 MCG PO (09:08)
[2023-12-22] MEDS: MEGESTROL ACETATE (*CHEMO) ORAL SUSP 40 MG/ML SYR 400 MG PO ×2 (09:08→16:56)
[2023-12-22] MEDS: AZELASTINE HCL NASAL 0.1% 137 MCG/SPR 30 ML BTL 1 SPRAY NASAL ×2 (09:08→20:37)
--- NOTE | 2023-12-22 10:02 | P.PNIM_ITS ---
Progress Note: A&P Assessment and Plan (1) Pneumonia: Code(s): J18.9 - Pneumonia, unspecified organism Status: Acute Assessment and Plan: * Recent diagnosis for pneumonia * CXR showing subsegmental right basilar atelectasis/pneumonia, interstitial lung disease. * Patient given 1 time dose of IV Levaquin in the ER, doses * Continue neb treatments * Currently on 3L NC * Continue Mucinex, Azelastine, and Trelegy inhaler 12/20/23: * Continue oral Levaquin * Continue current treatment plan 12/21/23: * Continue with current treatment plan. 12/22/2023 agree and continue with current tx plan (2) Abnormal chest x-ray: Code(s): R93.89 - Abnormal findings on diagnostic imaging of other specified body structures Status: Acute Assessment and Plan: * see above (3) CHF (congestive heart failure): Code(s): I50.9 - Heart failure, unspecified Status: Chronic Assessment and Plan: 12/19/23: * Continue Jardiance, Metolazone, and Sacubitril/Valsartan 12/20/23: * No change to current treatment plan 12/22/2023 continue tx plan (4) COPD (chronic obstructive pulmonary disease): Code(s): J44.9 - Chronic obstructive pulmonary disease, unspecified Status: Chronic Assessment and Plan: 12/19/23: * Continue nebulizer breathing treatments 12/20/23: * No change to current treatment plan 12/22/2023 continue current tx plan (5) Dehydration: Code(s): E86.0 - Dehydration Status: Acute Assessment and Plan: 12/19/23: * Patient reported not eating or drinking fluids at home * B/P initially 54/45, Na+ 133, Chloride 91 * Patient given 2L NS while in ER and started on IVF 12/20/23: * Encourage food and fluid * continue IVF * No change to current treatment plan 12/21/23: * Continue with current treatment plan * 12/22/2023 Pt eating, d/c IVF, continue to encourage food/fluid (6) Generalized weakness: Code(s): R53.1 - Weakness Status: Acute Assessment and Plan: 12/19/23: * PT and OT ordered 12/20/23: * No change to current treatment plan * 12/22/2023 Continue pt tx, plan to dc to SNF in the a.m. (7) Hypertension: Code(s): I10 - Essential (primary) hypertension Status: Chronic Assessment and Plan: 12/19/23: * B/P still labile * Continue to hold Nadolol 12/20/23: * No change to current treatment plan * 12/22/2023 continue to hold b/p medication b/p 107/53 Subjective Date/time seen: 12/22/23 10:02 Interval history: Date/time seen: 12/21/23? 15:51 Interval history: 12/19/23: This is an 83 year old female with a significant past medical history of CHF, COPD, HTN, [place], Paroxysmal A-fib, pulmonary hypertension, spinal stenosis who presented to the hospital with complaints of generalized weakness. She was recently diagnosed with pneumonia and reports decreased appetite and fatigue. She was hypotensive on admission, however responded well to fluid resuscitation. Work up in hospital includes CXR which revealed subsegmental right basilar atelectasis vrs pneumonia, interstitial lung disease without edema. Labs revealed WBC 16.2,Na+ 133, Chloride 91, BUN 43, Creatinine 1.20, eGFR 43, creatinine clearance 28, Lactic acid 2.1>1.2, Liver enzymes were normal, Magnesium 2.2, Troponin negative, proBNP 1410. UA shown 3+ glucose, otherwise unremarkable. Respiratory panel negative for Flu, RSV, Covid. Blood cultures obtained and are pen
--- NOTE | 2023-12-22 10:02 | PM.IMPN ---
Progress Note: A&P Assessment and Plan (1) Pneumonia: Code(s): J18.9 - Pneumonia, unspecified organism Status: Acute Assessment and Plan: Recent diagnosis for pneumonia CXR showing subsegmental right basilar atelectasis/pneumonia, interstitial lung disease. Patient given 1 time dose of IV Levaquin in the ER, doses Continue neb treatments Currently on 3L NC Continue Mucinex, Azelastine, and Trelegy inhaler 12/20/23: Continue oral Levaquin Continue current treatment plan 12/21/23: Continue with current treatment plan. 12/22/2023 agree and continue with current tx plan (2) Abnormal chest x-ray: Code(s): R93.89 - Abnormal findings on diagnostic imaging of other specified body structures Status: Acute Assessment and Plan: see above (3) CHF (congestive heart failure): Code(s): I50.9 - Heart failure, unspecified Status: Chronic Assessment and Plan: 12/19/23: Continue Jardiance, Metolazone, and Sacubitril/Valsartan 12/20/23: No change to current treatment plan 12/22/2023 continue tx plan (4) COPD (chronic obstructive pulmonary disease): Code(s): J44.9 - Chronic obstructive pulmonary disease, unspecified Status: Chronic Assessment and Plan: 12/19/23: Continue nebulizer breathing treatments 12/20/23: No change to current treatment plan 12/22/2023 continue current tx plan (5) Dehydration: Code(s): E86.0 - Dehydration Status: Acute Assessment and Plan: 12/19/23: Patient reported not eating or drinking fluids at home B/P initially 54/45, Na+ 133, Chloride 91 Patient given 2L NS while in ER and started on IVF 12/20/23: Encourage food and fluid continue IVF No change to current treatment plan 12/21/23: Continue with current treatment plan 12/22/2023 Pt eating, d/c IVF, continue to encourage food/fluid (6) Generalized weakness: Code(s): R53.1 - Weakness Status: Acute Assessment and Plan: 12/19/23: PT and OT ordered 12/20/23: No change to current treatment plan 12/22/2023 Continue pt tx, plan to dc to SNF in the a.m. (7) Hypertension: Code(s): I10 - Essential (primary) hypertension Status: Chronic Assessment and Plan: 12/19/23: B/P still labile Continue to hold Nadolol 12/20/23: No change to current treatment plan 12/22/2023 continue to hold b/p medication b/p 107/53 Subjective Date/time seen: 12/22/23 10:02 Interval history: Date/time seen: 12/21/23? 15:51 Interval history: 12/19/23: This is an 83 year old female with a significant past medical history of CHF, COPD, HTN, [place], Paroxysmal A-fib, pulmonary hypertension, spinal stenosis who presented to the hospital with complaints of generalized weakness. She was recently diagnosed with pneumonia and reports decreased appetite and fatigue. She was hypotensive on admission, however responded well to fluid resuscitation. Work up in hospital includes CXR which revealed subsegmental right basilar atelectasis vrs pneumonia, interstitial lung disease without edema. Labs revealed WBC 16.2,Na+ 133, Chloride 91, BUN 43, Creatinine 1.20, eGFR 43, creatinine clearance 28, Lactic acid 2.1>1.2, Liver enzymes were normal, Magnesium 2.2, Troponin negative, proBNP 1410. UA shown 3+ glucose, otherwise unremarkable. Respiratory panel negative for Flu, RSV, Covid. Blood cultures obtained and are pending. Patient was given 2L NS, started on IVF, given zofran, and started on Levaquin in the ER.? On examination today patient is alert and oriented x3, sitting in the chair. She denies any fever, chills, chest pain, abdominal pain, nausea, vomiting, diarrhea, or headache. She endorses lightheadedness and dizziness when getting up, shortness of breath and a non productive cough. VSS, she is afebrile, currently on 3L NC. Lungs today course throughout bilaterally. 12/20/23: On examination today patient is still reporting
[2023-12-22] MEDS: BENZONATATE 100 MG CAPSULE 200 MG PO ×2 (12:47→16:56)
[2023-12-22 15:35] LABS: SARS-CoV-2 RNA PCR Negative (Negative)
[2023-12-22] MEDS: levoFLOXacin 750 MG TABLET PO (20:36)
[2023-12-22] MEDS: PARoxetine 20 MG TABLET 40 MG PO (20:36)
[2023-12-22] MEDS: MIRTAZAPINE 30 MG TABLET PO (20:37)
[2023-12-23] VITALS (15 sets, daily range): BP systolic 114–147; BP diastolic 57–92; PULSE 70–121; RESP 16–20; TEMP 36.5–36.8; O2SAT 91–98
[2023-12-23] MEDS: IPRATROPIUM 0.5 MG/ALBUTEROL SULFATE 2.5 MG AMPUL.NEB 3 ML INHALATION ×4 (03:00→21:25)
[2023-12-23 03:37] LABS: Appearance Urine Clear (Clear); Bilirubin Urine Negative (Negative); Blood Urine Negative (Negative); Color Urine Yellow (Yellow); Glucose Urine UA 2+ mg/dL (Negative); Ketones Urine Negative (Negative); Leukocyte Esterase Ur Negative LEU/UL (Negative); Nitrate Urine Negative (Negative); Protein Urine Negative (Negative); Specific Grav Ur 1.009 (1.001-1.035); pH Urine 7.5 (5.0-9.0)
[2023-12-23 03:48] LABS: Add Urine Microscopic? NO
[2023-12-23 06:27] LABS: Basophils Percent Auto 0.3 % (0.2-1.2); Eosinophils Absolute Auto 0.2 K/mm3 (0-0.3); Eosinophils Percent Auto 1.4 % (0-4.4); Hematocrit 41.3 % (37.0-47.0); Hemoglobin 12.6 g/dL (12.0-15.0); Immature Granulocyte Absolute 0.07 K/mm3 (0.00-0.031); Immature Granulocyte Percent A 0.5 % (0-0.5); Immature Platelet Fraction Pct 2.5 % (0.9-11.2); Lymphocytes Absolute Auto 3.51 K/mm3 (0.9-3.2); Lymphocytes Percent Auto 24.9 % (18.3-44.2); Mean Corpuscular HGB Conc 30.5 g/dl (32-36); Mean Corpuscular Hemoglobin 30.6 pg (26-34); Mean Corpuscular Volume 100.2 fl (80-100); Mean Platelet Volume 9.7 fl (7.4-10.4); Monocytes Absolute Auto 1.4 K/mm3 (0.1-0.6); Monocytes Percent Auto 9.8 % (2.6-8.5); Neutrophils Absolute Auto 8.9 K/mm3 (1.3-6.7); Neutrophils Percent Auto 63.1 % (45.5-73.1); Platelet Count Result 350 k/mm3 (150-375); Red Blood Count 4.12 M/mm3 (4.2-5.4); Red Cell Distribution Width 12.9 % (11.5-14.5); White Blood Count 14.1 K/mm3 (4.5-10.0)
[2023-12-23 06:37] LABS: Alanine Aminotransferase 16 U/L (6-35); Albumin Level 3.4 g/dL (3.5-5.1); Alkaline Phosphatase 70 U/L (38-126); Anion Gap 9 mmol/L (8-16); Aspartate Amino Transferase 30 U/L (14-36); Bilirubin,Total 0.7 mg/dL (0.2-1.3); Blood Urea Nitrogen 17 mg/dL (7-17); Calcium 8.6 mg/dL (8.4-10.2); Carbon Dioxide 27 mmol/L (22-30); Chloride 98 mmol/L (98-107); Estimated CRCL calculation 40 ml/min; Estimated Glomerular Filt Rate 60; Glucose 98 mg/dL (65-110); Potassium 3.8 mmol/L (3.4-5.0); Sodium 134 mmol/L (137-145)
[2023-12-23 07:40] LABS: Platelet Estimate Adequate (Adequate)
[2023-12-23 07:41] LABS: Hypochromasia 1+ (NORMAL); Schistocytes None Seen (NORMAL)
[2023-12-23] MEDS: FLUTICASONE/UMECLIDIN/VILANTER 100-62.5-25 MCG ELLIPTA 1 PUFF INHALATION (08:21)
[2023-12-23] MEDS: MONTELUKAST SODIUM 10 MG TABLET PO (09:04)
[2023-12-23] MEDS: metOLazone 2.5 MG TABLET PO (09:04)
[2023-12-23] MEDS: PANTOPRAZOLE 40 MG TABLET PO (09:04)
[2023-12-23] MEDS: SACUBITRIL/VALSARTAN 24-26 MG TABLET 1 TAB PO ×2 (09:05→20:21)
[2023-12-23] MEDS: LORATADINE 10 MG TABLET PO (09:05)
[2023-12-23] MEDS: MEGESTROL ACETATE (*CHEMO) ORAL SUSP 40 MG/ML SYR 400 MG PO ×2 (09:05→16:37)
[2023-12-23] MEDS: BENZONATATE 100 MG CAPSULE 200 MG PO ×3 (09:05→16:32)
[2023-12-23] MEDS: CYANOCOBALAMIN 1,000 MCG TABLET 1000 MCG PO (09:05)
[2023-12-23] MEDS: EMPAGLIFLOZIN 10 MG TABLET PO (09:05)
[2023-12-23] MEDS: GABAPENTIN 300 MG CAPSULE PO ×3 (09:05→16:32)
[2023-12-23] MEDS: ENOXAPARIN 40 MG/0.4 ML SYRINGE SUB-Q (09:05)
[2023-12-23] MEDS: AZELASTINE HCL NASAL 0.1% 137 MCG/SPR 30 ML BTL 1 SPRAY NASAL ×2 (09:06→20:21)
--- NOTE | 2023-12-23 10:44 | PM.DS ---
DS: Admitting Diagnosis Discharge Date 12/23/2023 Admitting Diagnosis Weakness DS: Summary Time Spent with Patient Time attestation: Total time spent providing and/or coordinating discharge services: DS: Data Data Completed and Pending Labs on day of discharge: Labs from last 24 hours 12/23/23 12/23/23 12/23/23 05:49 05:48 03:19 WBC 14.1 H RBC 4.12 L Hgb 12.6 Hct 41.3 MCV 100.2 H MCH 30.6 MCHC 30.5 L RDW 12.9 Plt Count 350 MPV 9.7 Immature Gran % (Auto) 0.5 Neut % (Auto) 63.1 Lymph % (Auto) 24.9 [place] % (Auto) 9.8 H Eos % (Auto) 1.4 Baso % (Auto) 0.3 Lymph # (Auto) 3.51 H [place] # (Auto) 1.4 H Eos # (Auto) 0.2 Baso # (Auto) 0.0 Abs Immat Gran (auto) 0.07 H Absolute Neuts (auto) 8.9 H Absolute Nucleated RBC 0.0 Nucleated RBC % 0.0 Platelet Estimate Adequate % Immature Plt Fraction 2.5 Hypochromasia 1+ Schistocytes None seen Sodium 134 L Potassium 3.8 Chloride 98 Carbon Dioxide 27 Anion Gap 9 BUN 17 Creatinine 0.90 Estim Creat Clear Calc 40 Estimated GFR 60 Glucose 98 Calcium 8.6 Total Bilirubin 0.7 AST 30 ALT 16 Alkaline Phosphatase 70 Total Protein 7.0 Albumin 3.4 L Urine Color Yellow Urine Appearance Clear Urine pH 7.5 Ur Specific [place] 1.009 Urine Protein Negative Urine Glucose (UA) 2+ H Urine Ketones Negative Ur Blood (Man) Negative Urine Nitrate Negative Urine Bilirubin Negative Urine Urobilinogen 1.0 Leukocyte Esterase Rfl Negative SARS-CoV-2 RNA (RT-PCR) 12/22/23 14:38 WBC RBC Hgb Hct MCV MCH MCHC RDW Plt Count MPV Immature Gran % (Auto) Neut % (Auto) Lymph % (Auto) Crow[place] % (Auto) Eos % (Auto) Baso % (Auto) Lymph # (Auto) [place] # (Auto) Eos # (Auto) Baso # (Auto) Abs Immat Gran (auto) Absolute Neuts (auto) Absolute Nucleated RBC Nucleated RBC % Platelet Estimate % Immature Plt Fraction Hypochromasia Schistocytes Sodium Potassium Chloride Carbon Dioxide Anion Gap BUN Creatinine Estim Creat Clear Calc Estimated GFR Glucose Calcium Total Bilirubin AST ALT Alkaline Phosphatase Total Protein Albumin Urine Color Urine Appearance Urine pH Ur Specific [place] Urine Protein Urine Glucose (UA) Urine Ketones Ur Blood (Man) Urine Nitrate Urine Bilirubin Urine Urobilinogen Leukocyte Esterase Rfl SARS-CoV-2 RNA (RT-PCR) Negative Preliminary micro results at discharge 12/18/23 17:03 Blood Culture - Preliminary Blood 12/18/23 17:03 Blood Culture - Preliminary Blood Discharge Plan Discharge Patient Instructions: Pain Management (DC) Discharge Medications: No Action montelukast 10 mg tablet 10 mg PO DAILY Trelegy Ellipta 100-62.5-25 mcg blister with device 2 inh INHALATION DAILY paroxetine HCl 20 mg tablet 40 mg PO DAILY mirtazapine 15 mg tablet 30 mg PO DAILY nadolol 40 mg tablet 40 mg PO BID gabapentin 300 mg capsule 300 mg PO TID cetirizine 10 mg Tablet 10 mg PO DAILY metolazone 2.5 mg Tablet 2.5 mg PO DAILY prednisone 10 mg Tablet 10 mg PO TID Rx Instructions: for 5 days starting 12/19/2023 azelastine 137 mcg (0.1 %) aerosol,spray 137 mcg INTRANASAL BID ondansetron 4 mg Tablet,Disintegrating 4 mg Q6-8H PRN (Reason: Nausea And Vomiting) megestrol 400 mg/10 mL (10 mL) Suspension 400 mg PO BID Jardiance 10 mg Tablet 10 mg PO DAILY B12 1,000 mcg PO DAILY Daily Multivitamin 1 tablet PO DAILY Entresto 24 - 26 mg PO Q12H Jardiance 10 mg PO DAILY Mucinex 600 mg PO Q12H PRN (Reason: Congestion) Protonix 40 mg PO DAILY acetaminophen 650 mg PO Q8H PRN (Reason: Pain (Scale Score 1-3)) ipratropium-albuterol 0.5 - 3 mg inhalation QID
[2023-12-23] MEDS: guaiFENesin 12 HR 600 MG TABCR PO (16:32)
[2023-12-23] MEDS: ONDANSETRON HCL ODT 4 MG TABLET PO (16:33)
[2023-12-23] MEDS: MIRTAZAPINE 30 MG TABLET PO (20:21)
[2023-12-23] MEDS: PARoxetine 20 MG TABLET 40 MG PO (20:21)
--- NOTE | 2023-12-23 21:05 | P.PNIM_ITS ---
Progress Note: A&P Assessment and Plan (1) Pneumonia: Code(s): J18.9 - Pneumonia, unspecified organism Status: Acute Assessment and Plan: * Recent diagnosis for pneumonia * CXR showing subsegmental right basilar atelectasis/pneumonia, interstitial lung disease. * Patient given 1 time dose of IV Levaquin in the ER, doses * Continue neb treatments * Currently on 3L NC * Continue Mucinex, Azelastine, and Trelegy inhaler 12/20/23: * Continue oral Levaquin * Continue current treatment plan 12/21/23: * Continue with current treatment plan. 12/22/2023 agree and continue with current tx plan 12/23/2023 continue with tx plan (2) Abnormal chest x-ray: Code(s): R93.89 - Abnormal findings on diagnostic imaging of other specified body structures Status: Acute Assessment and Plan: * see above (3) CHF (congestive heart failure): Code(s): I50.9 - Heart failure, unspecified Status: Chronic Assessment and Plan: 12/19/23: * Continue Jardiance, Metolazone, and Sacubitril/Valsartan 12/20/23: * No change to current treatment plan 12/22/2023 continue tx plan 12/23/2023: continue with plan (4) COPD (chronic obstructive pulmonary disease): Code(s): J44.9 - Chronic obstructive pulmonary disease, unspecified Status: Chronic Assessment and Plan: 12/19/23: * Continue nebulizer breathing treatments 12/20/23: * No change to current treatment plan 12/22/2023 continue current tx plan 12/23/2023: continue with current tx plan (5) Dehydration: Code(s): E86.0 - Dehydration Status: Acute Assessment and Plan: 12/19/23: * Patient reported not eating or drinking fluids at home * B/P initially 54/45, Na+ 133, Chloride 91 * Patient given 2L NS while in ER and started on IVF 12/20/23: * Encourage food and fluid * continue IVF * No change to current treatment plan 12/21/23: * Continue with current treatment plan * 12/22/2023 Pt eating, d/c IVF, continue to encourage food/fluid 12/23/2023: pt reports decreased appetite, continue to encourage food and fluid (6) Generalized weakness: Code(s): R53.1 - Weakness Status: Acute Assessment and Plan: 12/19/23: * PT and OT ordered 12/20/23: * No change to current treatment plan * 12/22/2023 Continue pt tx, plan to dc to SNF in the a.m. 12/23/2023: pt plan was to dispo to home, at time of discharge pt became SOB, with nausea, vomiting, reporting she was not ready to be discharged, due to not feeling well and SOB, -bedside CXR, Duo Nebs changed q4, check CTA in the a.m I am concerned for PE, pt did not appear well after second visit, she was tearful, with ongoing cough with increased sputum production, mild acute respiratory distress. will hold for further testing. plan to dispo xiomara, after testing (7) Hypertension: Code(s): I10 - Essential (primary) hypertension Status: Chronic Assessment and Plan: 12/19/23: * B/P still labile * Continue to hold Nadolol 12/20/23: * No change to current treatment plan * 12/22/2023 continue to hold b/p medication b/p 107/53 12/23/2023: restart nadolol with holding parameters, b/p is 147/92 Subjective Date/time seen: 12/23/23 1100 Interval history: Date/time seen: 12/21/23? 15:51 Interval history: 12/19/23: This is an 83 year old female with a significant past medical history of CHF, COPD, HTN, M
--- NOTE | 2023-12-23 21:05 | PM.IMPN ---
Progress Note: A&P Assessment and Plan (1) Pneumonia: Code(s): J18.9 - Pneumonia, unspecified organism Status: Acute Assessment and Plan: Recent diagnosis for pneumonia CXR showing subsegmental right basilar atelectasis/pneumonia, interstitial lung disease. Patient given 1 time dose of IV Levaquin in the ER, doses Continue neb treatments Currently on 3L NC Continue Mucinex, Azelastine, and Trelegy inhaler 12/20/23: Continue oral Levaquin Continue current treatment plan 12/21/23: Continue with current treatment plan. 12/22/2023 agree and continue with current tx plan 12/23/2023 continue with tx plan (2) Abnormal chest x-ray: Code(s): R93.89 - Abnormal findings on diagnostic imaging of other specified body structures Status: Acute Assessment and Plan: see above (3) CHF (congestive heart failure): Code(s): I50.9 - Heart failure, unspecified Status: Chronic Assessment and Plan: 12/19/23: Continue Jardiance, Metolazone, and Sacubitril/Valsartan 12/20/23: No change to current treatment plan 12/22/2023 continue tx plan 12/23/2023: continue with plan (4) COPD (chronic obstructive pulmonary disease): Code(s): J44.9 - Chronic obstructive pulmonary disease, unspecified Status: Chronic Assessment and Plan: 12/19/23: Continue nebulizer breathing treatments 12/20/23: No change to current treatment plan 12/22/2023 continue current tx plan 12/23/2023: continue with current tx plan (5) Dehydration: Code(s): E86.0 - Dehydration Status: Acute Assessment and Plan: 12/19/23: Patient reported not eating or drinking fluids at home B/P initially 54/45, Na+ 133, Chloride 91 Patient given 2L NS while in ER and started on IVF 12/20/23: Encourage food and fluid continue IVF No change to current treatment plan 12/21/23: Continue with current treatment plan 12/22/2023 Pt eating, d/c IVF, continue to encourage food/fluid 12/23/2023: pt reports decreased appetite, continue to encourage food and fluid (6) Generalized weakness: Code(s): R53.1 - Weakness Status: Acute Assessment and Plan: 12/19/23: PT and OT ordered 12/20/23: No change to current treatment plan 12/22/2023 Continue pt tx, plan to dc to SNF in the a.m. 12/23/2023: pt plan was to dispo to home, at time of discharge pt became SOB, with nausea, vomiting, reporting she was not ready to be discharged, due to not feeling well and SOB, -bedside CXR, Duo Nebs changed q4, check CTA in the a.m I am concerned for PE, pt did not appear well after second visit, she was tearful, with ongoing cough with increased sputum production, mild acute respiratory distress. will hold for further testing. plan to dispo xiomara, after testing (7) Hypertension: Code(s): I10 - Essential (primary) hypertension Status: Chronic Assessment and Plan: 12/19/23: B/P still labile Continue to hold Nadolol 12/20/23: No change to current treatment plan 12/22/2023 continue to hold b/p medication b/p 107/53 12/23/2023: restart nadolol with holding parameters, b/p is 147/92 Subjective Date/time seen: 12/23/23 1100 Interval history: Date/time seen: 12/21/23? 15:51 Interval history: 12/19/23: This is an 83 year old female with a significant past medical history of CHF, COPD, HTN, OR, Paroxysmal A-fib, pulmonary hypertension, spinal stenosis who presented to the hospital with complaints of generalized weakness. She was recently diagnosed with pneumonia and reports decreased appetite and fatigue. She was hypotensive on admission, however responded well to fluid resuscitation. Work up in hospital includes CXR which revealed subsegmental right basilar atelectasis vrs pneumonia, interstitial lung disease without edema. Labs revealed WBC 16.2,Na+ 133, Chloride 91, BUN 43, Creatinine 1.20, eGFR 43, creatinine clearance 28, Lactic acid 2.1>1.2,
[2023-12-24] VITALS (26 sets, daily range): BP systolic 87–161; BP diastolic 48–90; PULSE 88–149; RESP 16–34; TEMP 36.4–37; O2SAT 91–98
[2023-12-24] MEDS: nadoloL 20 MG TABLET 40 MG PO (01:31)
[2023-12-24] MEDS: IPRATROPIUM 0.5 MG/ALBUTEROL SULFATE 2.5 MG AMPUL.NEB 3 ML INHALATION ×5 (05:20→20:15)
[2023-12-24 05:41] LABS: Basophils Absolute Auto 0.1 K/mm3 (0.0-0.1); Basophils Percent Auto 0.2 % (0.2-1.2); Eosinophils Absolute Auto 0.1 K/mm3 (0-0.3); Eosinophils Percent Auto 0.3 % (0-4.4); Hematocrit 40.3 % (37.0-47.0); Hemoglobin 13.2 g/dL (12.0-15.0); Immature Granulocyte Absolute 0.13 K/mm3 (0.00-0.031); Immature Granulocyte Percent A 0.5 % (0-0.5); Lymphocytes Absolute Auto 2.61 K/mm3 (0.9-3.2); Lymphocytes Percent Auto 10.2 % (18.3-44.2); Mean Corpuscular HGB Conc 32.8 g/dl (32-36); Mean Corpuscular Hemoglobin 31.4 pg (26-34); Mean Corpuscular Volume 95.7 fl (80-100); Mean Platelet Volume 9.2 fl (7.4-10.4); Monocytes Absolute Auto 1.6 K/mm3 (0.1-0.6); Monocytes Percent Auto 6.3 % (2.6-8.5); Neutrophils Absolute Auto 21.2 K/mm3 (1.3-6.7); Neutrophils Percent Auto 82.5 % (45.5-73.1); Platelet Count Result 342 k/mm3 (150-375); Red Blood Count 4.21 M/mm3 (4.2-5.4); Red Cell Distribution Width 12.9 % (11.5-14.5); White Blood Count 25.7 K/mm3 (4.5-10.0)
[2023-12-24 05:51] LABS: Alanine Aminotransferase 18 U/L (6-35); Albumin Level 3.5 g/dL (3.5-5.1); Alkaline Phosphatase 77 U/L (38-126); Anion Gap 9 mmol/L (8-16); Aspartate Amino Transferase 32 U/L (14-36); Bilirubin,Total 0.8 mg/dL (0.2-1.3); Blood Urea Nitrogen 26 mg/dL (7-17); Calcium 9.1 mg/dL (8.4-10.2); Carbon Dioxide 31 mmol/L (22-30); Chloride 97 mmol/L (98-107); Estimated CRCL calculation 30 ml/min; Estimated Glomerular Filt Rate 43; Glucose 115 mg/dL (65-110); Potassium 3.7 mmol/L (3.4-5.0); Sodium 137 mmol/L (137-145)
[2023-12-24 06:01] LABS: Platelet Estimate Adequate (Adequate)
[2023-12-24 06:02] LABS: Large Platelets Present; Poikilocytosis 1+ (NORMAL); Schistocytes None Seen (NORMAL)
[2023-12-24] MEDS: FLUTICASONE/UMECLIDIN/VILANTER 100-62.5-25 MCG ELLIPTA 1 PUFF INHALATION (07:34)
[2023-12-24] MEDS: MONTELUKAST SODIUM 10 MG TABLET PO (09:51)
[2023-12-24] MEDS: BENZONATATE 100 MG CAPSULE 200 MG PO ×3 (09:51→17:26)
[2023-12-24] MEDS: LORATADINE 10 MG TABLET PO (09:51)
[2023-12-24] MEDS: PANTOPRAZOLE 40 MG TABLET PO (09:51)
[2023-12-24] MEDS: EMPAGLIFLOZIN 10 MG TABLET PO (09:51)
[2023-12-24] MEDS: MEGESTROL ACETATE (*CHEMO) ORAL SUSP 40 MG/ML SYR 400 MG PO (09:53)
[2023-12-24] MEDS: AZELASTINE HCL NASAL 0.1% 137 MCG/SPR 30 ML BTL 1 SPRAY NASAL ×2 (09:53→21:44)
[2023-12-24] MEDS: CYANOCOBALAMIN 1,000 MCG TABLET 1000 MCG PO (09:53)
[2023-12-24] MEDS: ENOXAPARIN 40 MG/0.4 ML SYRINGE SUB-Q (09:54)
[2023-12-24] MEDS: CEFEPIME 2 GM/NS 50 ML 2 GM/50 ML BAG IVPB ×2 (10:38→20:34)
--- NOTE | 2023-12-24 11:24 | P.PNIM_ITS ---
Progress Note: A&P Assessment and Plan (1) Pneumonia: Code(s): J18.9 - Pneumonia, unspecified organism Status: Acute Assessment and Plan: * Recent diagnosis for pneumonia * CXR showing subsegmental right basilar atelectasis/pneumonia, interstitial lung disease. * Patient given 1 time dose of IV Levaquin in the ER, doses * Continue neb treatments * Currently on 3L NC * Continue Mucinex, Azelastine, and Trelegy inhaler 12/20/23: * Continue oral Levaquin * Continue current treatment plan 12/21/23: * Continue with current treatment plan. 12/22/2023 agree and continue with current tx plan 12/23/2023 continue with tx plan 12/24/2023 -condition guarded patient requiring 4 L NC, increased sputum production, RR>26 - (2) Abnormal chest x-ray: Code(s): R93.89 - Abnormal findings on diagnostic imaging of other specified body structures Status: Acute Assessment and Plan: * see above (3) CHF (congestive heart failure): Code(s): I50.9 - Heart failure, unspecified Status: Chronic Assessment and Plan: 12/19/23: * Continue Jardiance, Metolazone, and Sacubitril/Valsartan 12/20/23: * No change to current treatment plan 12/22/2023 continue tx plan 12/23/2023: continue with plan 12/24/2023, change to current condition, hold Jardiance, Metolazone, and Sacubitril/Valsartan (4) COPD (chronic obstructive pulmonary disease): Code(s): J44.9 - Chronic obstructive pulmonary disease, unspecified Status: Chronic Assessment and Plan: 12/19/23: * Continue nebulizer breathing treatments 12/20/23: * No change to current treatment plan 12/22/2023 continue current tx plan 12/23/2023: continue with current tx plan 12/24/2023: continue neb tx as needed for shortness of breath, and wheezing (5) Dehydration: Code(s): E86.0 - Dehydration Status: Acute Assessment and Plan: 12/19/23: * Patient reported not eating or drinking fluids at home * B/P initially 54/45, Na+ 133, Chloride 91 * Patient given 2L NS while in ER and started on IVF 12/20/23: * Encourage food and fluid * continue IVF * No change to current treatment plan 12/21/23: * Continue with current treatment plan * 12/22/2023 Pt eating, d/c IVF, continue to encourage food/fluid 12/23/2023: pt reports decreased appetite, continue to encourage food and fluid 12/24/2023: (6) Generalized weakness: Code(s): R53.1 - Weakness Status: Acute Assessment and Plan: 12/19/23: * PT and OT ordered 12/20/23: * No change to current treatment plan * 12/22/2023 Continue pt tx, plan to dc to SNF in the a.m. 12/23/2023: pt plan was to dispo to home, at time of discharge pt became SOB, with nausea, vomiting, reporting she was not ready to be discharged, due to not feeling well and SOB, -bedside CXR, Duo Nebs changed q4, check CTA in the a.m I am concerned for PE, pt did not appear well after second visit, she was tearful, with ongoing cough with increased sputum production, mild acute respiratory distress. will hold for further testing. plan to dispo xiomara, after testing 12/24/2023: pt seen this am, condition has changed to guarded, she is in mild resp, distress pursed lip breathing, denies chest pain, admits to SOB without exertion. Plan hold b/p medication, cta pending, o2 titration. may consider bi-pap if pt continues with SOB. Discussion with pt and family she does not desire intubation at this time. (7)
--- NOTE | 2023-12-24 11:24 | PM.IMPN ---
Progress Note: A&P Assessment and Plan (1) Pneumonia: Code(s): J18.9 - Pneumonia, unspecified organism Status: Acute Assessment and Plan: Recent diagnosis for pneumonia CXR showing subsegmental right basilar atelectasis/pneumonia, interstitial lung disease. Patient given 1 time dose of IV Levaquin in the ER, doses Continue neb treatments Currently on 3L NC Continue Mucinex, Azelastine, and Trelegy inhaler 12/20/23: Continue oral Levaquin Continue current treatment plan 12/21/23: Continue with current treatment plan. 12/22/2023 agree and continue with current tx plan 12/23/2023 continue with tx plan 12/24/2023 -condition guarded patient requiring 4 L NC, increased sputum production, RR>26 - (2) Abnormal chest x-ray: Code(s): R93.89 - Abnormal findings on diagnostic imaging of other specified body structures Status: Acute Assessment and Plan: see above (3) CHF (congestive heart failure): Code(s): I50.9 - Heart failure, unspecified Status: Chronic Assessment and Plan: 12/19/23: Continue Jardiance, Metolazone, and Sacubitril/Valsartan 12/20/23: No change to current treatment plan 12/22/2023 continue tx plan 12/23/2023: continue with plan 12/24/2023, change to current condition, hold Jardiance, Metolazone, and Sacubitril/Valsartan (4) COPD (chronic obstructive pulmonary disease): Code(s): J44.9 - Chronic obstructive pulmonary disease, unspecified Status: Chronic Assessment and Plan: 12/19/23: Continue nebulizer breathing treatments 12/20/23: No change to current treatment plan 12/22/2023 continue current tx plan 12/23/2023: continue with current tx plan 12/24/2023: continue neb tx as needed for shortness of breath, and wheezing (5) Dehydration: Code(s): E86.0 - Dehydration Status: Acute Assessment and Plan: 12/19/23: Patient reported not eating or drinking fluids at home B/P initially 54/45, Na+ 133, Chloride 91 Patient given 2L NS while in ER and started on IVF 12/20/23: Encourage food and fluid continue IVF No change to current treatment plan 12/21/23: Continue with current treatment plan 12/22/2023 Pt eating, d/c IVF, continue to encourage food/fluid 12/23/2023: pt reports decreased appetite, continue to encourage food and fluid 12/24/2023: (6) Generalized weakness: Code(s): R53.1 - Weakness Status: Acute Assessment and Plan: 12/19/23: PT and OT ordered 12/20/23: No change to current treatment plan 12/22/2023 Continue pt tx, plan to dc to SNF in the a.m. 12/23/2023: pt plan was to dispo to home, at time of discharge pt became SOB, with nausea, vomiting, reporting she was not ready to be discharged, due to not feeling well and SOB, -bedside CXR, Duo Nebs changed q4, check CTA in the a.m I am concerned for PE, pt did not appear well after second visit, she was tearful, with ongoing cough with increased sputum production, mild acute respiratory distress. will hold for further testing. plan to dispo xiomara, after testing 12/24/2023: pt seen this am, condition has changed to guarded, she is in mild resp, distress pursed lip breathing, denies chest pain, admits to SOB without exertion. Plan hold b/p medication, cta pending, o2 titration. may consider bi-pap if pt continues with SOB. Discussion with pt and family she does not desire intubation at this time. (7) Hypertension: Code(s): I10 - Essential (primary) hypertension Status: Chronic Assessment and Plan: 12/19/23: B/P still labile Continue to hold Nadolol 12/20/23: No change to current treatment plan 12/22/2023 continue to hold b/p medication b/p 107/53 12/23/2023: restart nadolol with holding parameters, b/p is 147/92 12/24/2023, patient with hypotension hold nadolol Plan -patient transferred to IMU -check ABG -initiate BiPAP -discussed with family, would be interested
--- NOTE | 2023-12-24 13:38 | PCPTNOTE ---
The patient treatment was not able to be completed on 12/24/2023. Per RN advised not to see patient for PT, patient's heart rate has been elevated and patient has not been feeling well today. Will plan to continue treatment per plan of care.
[2023-12-24 13:47] LABS: MRSA (PCR) NOT DETECTED (NOT DETECTE)
[2023-12-24] MEDS: FUROSEMIDE INJ 40 MG/4 ML VIAL 20 MG IV PUSH (18:44)
[2023-12-24 19:30] LABS: Alveolar/Arterial O2 Gradient 174.3 mmHg; Base Excess ABG 2.2 mEq/l (+/-2.0); Fractional Inspired Oxygen 40 %; HCO3 ABG 27.8 mEq/l (22.0-26.0); Oxygen Content ABG 17.6 %vol (16.0-22.0); Oxygen Saturation ABG 89.3 % (95.0-100.0); Oxyhemoglobin 88.9 % THb (90.0-100.0); PCO2 ABG 46.8 mmHg (35.0-45.0); PO2 ABG 57.1 mmHg (80.0-100.0); PO2 FiO2 Ratio Arterial Blood 1.43 %; Total Hemoglobin 14.1 g/dL (12.0-18.0); pH ABG 7.392 (7.350-7.450)
[2023-12-24 19:31] LABS: Device NASAL CANNULA; Site Drawn RIGHT BRACHIAL
[2023-12-24] MEDS: LORazepam INJ (*CRX) 2 MG/ML VIAL 0.5 MG IV PUSH ×2 (19:38→21:45)
--- NOTE | 2023-12-24 20:08 | PC.NURSE ---
patient transferred to IMU at 2000 hrs to room 203. Report called and given to Wilfredo AMATO before transferring. BIPAP machine transferred along with patient.
--- NOTE | 2023-12-24 20:30 | ECG_ITS ---
Measurements Intervals [place] Rate: 141 P: 88 WV: 125 QRS: -18 QRSD: 86 T: 96 QT: 328 QTc: 504 Interpretive Statements SINUS TACHYCARDIA WITH OCCASIONAL SUPRAVENTRICULAR PREMATURE COMPLEXES, POSSIBLE ATRIAL FLUTTER NONSPECIFIC ST & T-WAVE ABNORMALITY Electronically Signed On 12-25-2023 12:31:01 [employer]YELET [employer]IV[employer]ER by Ar Concepcion M.D.
[2023-12-24 20:35] LABS: NT Pro B Type Natriuretic Pept 3940 pg/mL (19.9-100)
[2023-12-24] MEDS: METOPROLOL TARTRATE INJ 5 MG/5 ML VIAL IV PUSH ×2 (20:54→21:44)
--- NOTE | 2023-12-24 21:14 | PM.CCN ---
Critical Care Event Note Summary Code activated: No Narrative: 20:30 - Patient was transferred to the IMU. Upon arrival patient's heart rate was 146-149. EKG ordered and showed sinus tachycardia with occasional supraventricular premature complexes versus possible atrial flutter. Patient has history of paroxysmal AFib. Upon my personal review of the EKG, P-waves difficult to discern. Trial of 5 mg of metoprolol IVP given. Patient had subsequent reduction in heart rate to 111-117. Patient now reporting reduced anxiety/discomfort. Relate these findings and concerns to family who is at the bedside. Discussed EKG showing possible areas of depression (i.e. ischemia). Discussed possibility of SC versus demand ischemia, family elected to keep patient comfortable and would not like to proceed with any interventions. Troponin canceled. Additional 5 mg of IVP metoprolol q.6 x2 ordered prn for HR greater than 110. Nebs already ordered - albuterol/atrovent exchanged to levalbuterol/atrovent. Remains on BiPAP and tolerating it well. per family request, prn anxiolytic ordered - Ativan 0.5 mg IVP Q6H PRN. Physical exam showed tachypnea without diaphragmatic breathing. Tachycardic and irregular rhythm without murmur. Minimal air movement with faint expiratory wheeze and crackling in the mid to upper lobes bilaterally. 23:00 - exam shows increase coarse lung sounds with reduced wheezing. repeat EKG post-reduced rate. currently on cefepime IVPB. no previous steroids. one time dose of solu-medrol 60 mg IVP. Adding doxycycline for atypical coverage. obtaining Cheetah - increasing diuretic v IVF. 00:00 - Cheetah showed SVI 32 and CI 4.1 with a 14.2% change. Started on 500 mLs at 100 mL/hour of NS. Add 1 time dose of Lasix 20 IVP for 0200. sepsis alert triggered. blood cultures done on 12/18 which showed no growth. Adding procalcitonin to a.m. labs. Critical Care Time: I personally spent 70 minutes of direct patient care including (but not limited to) the physical examination, decision-making, bedside evaluation, review of medical records, review of labs and imaging, discussion with nursing staff and other providers for collaborative, critical care management of this patient. Critical care time: 30 - 74 mins
[2023-12-24] MEDS: MIRTAZAPINE 30 MG TABLET PO (21:44)
--- NOTE | 2023-12-24 23:06 | ECG_ITS ---
Measurements Intervals [place] Rate: 149 P: 99 ID: 119 QRS: 200 QRSD: 82 T: 58 QT: 307 QTc: 484 Interpretive Statements SINUS TACHYCARDIA WITH SHORT ID INTERVAL, POSSIBLE ATRIAL FLUTTER POSSIBLE RIGHT VENTRICULAR HYPERTROPHY LATERAL MYOCARDIAL INFARCTION, PROBABLY RECENT Electronically Signed On 12-25-2023 12:30:42 [employer]AD[employer] by Ar Concepcion M.D.
[2023-12-24] MEDS: IPRATROPIUM BR 0.02% INH SOLN 0.5 MG/2.5 ML VIAL 1 MG INHALATION (23:10)
[2023-12-24] MEDS: LEVALBUTEROL NEB 1.25 MG/3 ML 4 MG INHALATION (23:10)
[2023-12-24] MEDS: DOXYCYCLINE 100 MG/NS 100 ML 100 MG/100 ML BAG IVPB (23:51)
[2023-12-24] MEDS: methylPREDNISolone SOD SUCC 125 MG VIAL 60 MG IV PUSH (23:52)
[2023-12-25] VITALS (26 sets, daily range): BP systolic 52–144; BP diastolic 26–95; PULSE 56–217; RESP 12–28; TEMP 36.4–36.6; O2SAT 92–96
[2023-12-25] MEDS: FUROSEMIDE INJ 40 MG/4 ML VIAL 20 MG IV PUSH (02:08)
[2023-12-25] MEDS: SODIUM CHLORIDE 0.9% IV 500 ML 100 ML IV CONT (02:09)
[2023-12-25] MEDS: METOPROLOL TARTRATE INJ 5 MG/5 ML VIAL IV PUSH (03:29)
[2023-12-25] MEDS: ADENOSINE IV SOLN 6 MG/2 ML VIAL IV PUSH (03:37)
[2023-12-25] MEDS: ADENOSINE IV SOLN 6 MG/2 ML VIAL 12 MG IV PUSH (03:40)
[2023-12-25] MEDS: AMIODARONE 150 MG/D5W 100 ML 150 MG/100 ML BAG 600 MG IV CONT ×2 (03:46→03:56)
[2023-12-25] MEDS: fentaNYL CITRATE INJ (*CRX) 100 MCG/2 ML VIAL 25 MCG IV PUSH (03:49)
[2023-12-25] MEDS: NALOXONE HCL INJ 2 MG/2 ML AMP IV PUSH (04:02)
[2023-12-25] MEDS: SODIUM CHLORIDE 0.9% IV 250 ML 999 ML IV CONT (04:05)
[2023-12-25] MEDS: SODIUM CHLORIDE 0.9% IV 500 ML IV CONT (04:59)
[2023-12-25 05:47] LABS: Alanine Aminotransferase 17 U/L (6-35); Albumin Level 3.3 g/dL (3.5-5.1); Alkaline Phosphatase 74 U/L (38-126); Anion Gap 18 mmol/L (8-16); Aspartate Amino Transferase 69 U/L (14-36); Bilirubin,Total 0.8 mg/dL (0.2-1.3); Blood Urea Nitrogen 34 mg/dL (7-17); Calcium 8.5 mg/dL (8.4-10.2); Carbon Dioxide 15 mmol/L (22-30); Chloride 101 mmol/L (98-107); Estimated CRCL calculation 21 ml/min; Estimated Glomerular Filt Rate 27; Glucose 137 mg/dL (65-110); Potassium 4.3 mmol/L (3.4-5.0); Sodium 134 mmol/L (137-145)
[2023-12-25 05:56] LABS: Basophils Absolute Auto 0.1 K/mm3 (0.0-0.1); Basophils Percent Auto 0.2 % (0.2-1.2); Hematocrit 37.3 % (37.0-47.0); Hemoglobin 11.1 g/dL (12.0-15.0); Immature Granulocyte Absolute 0.37 K/mm3 (0.00-0.031); Immature Granulocyte Percent A 1.3 % (0-0.5); Lymphocytes Absolute Auto 1.54 K/mm3 (0.9-3.2); Lymphocytes Percent Auto 5.3 % (18.3-44.2); Mean Corpuscular HGB Conc 29.8 g/dl (32-36); Mean Corpuscular Hemoglobin 31.9 pg (26-34); Mean Corpuscular Volume 107.2 fl (80-100); Mean Platelet Volume 9.6 fl (7.4-10.4); Monocytes Absolute Auto 0.9 K/mm3 (0.1-0.6); Monocytes Percent Auto 3.2 % (2.6-8.5); Neutrophils Absolute Auto 26.3 K/mm3 (1.3-6.7); Platelet Count Result 286 k/mm3 (150-375); Red Blood Count 3.48 M/mm3 (4.2-5.4); Red Cell Distribution Width 13.5 % (11.5-14.5); White Blood Count 29.2 K/mm3 (4.5-10.0)
--- NOTE | 2023-12-25 06:22 | PC.NURSE ---
The patient was transferred to IMU for elevated HR and worsening respiratory status. Since the time of arrival it has been clear the patient is not doing well and would a high level of care moving forward. Kinga was notified of the patient presenting with a tachyarrythmia as well as the patient's precarious respiratory status requiring BIPAP continuously with rates in the high 30s-low 40s. She arrived a short time later to assist in evaluating and treating the patient multiple times throughout the night (See note from Kinga Montalvo NP.). At around 0330 the patient's HR elevated from the 110s into the 170-190 range, later at times running up over 200. This RN as well as 2 other RNs and the Medical Communication Specialist responded to patient's bedside and delivered care that ultimately resulted in doing a synchronized cardioversion. (See rapid notes from the medical charge entry specialist and Medical Communication Specialist) The patient was hypotensive following the cardioversion and MD notified and she has been given two boluses and the patient's BP has responded positively. MD discussed the patient's condition with the family and questions were fielded and answered by both the combatant diver qualified and myself.
--- NOTE | 2023-12-25 06:28 | PCRCNOTE ---
Patient did not receive her 0200 updraft treatment due to having just gotten a continuous (hour long) 1 hour prior. Treatment will resume @ 0800.
--- NOTE | 2023-12-25 06:35 | PC.NURSE ---
The patient was transferred to IMU for elevated HR and worsening respiratory status. From the time of arrival it had been clear the patient was not doing well and would require a high level of care moving forward. Kinga was notified of the patient presenting with a tachy arrhythmia as well as her precarious respiratory status requiring BIPAP continuously with rates in the high 30s-low 40s. Kinga arrived a short time later to assist in evaluating and treating the patient and at multiple points throughout the night (See note from Kinga Montalvo NP.). At around 0330 the patient's HR elevated from the 110s into the 170-190 range, later at times running up over 200. This RN as well as 2 other RNs and the Flare Breaker responded to patient's bedside and delivered care that ultimately resulted in doing a synchronized cardioversion. (See rapid documentation from the relief charge nurse and Flare Breaker) The patient was hypotensive following the cardioversion. MD notified. The patient has been given two boluses and BP has responded positively. MD discussed the patient's condition with the family and questions were fielded and answered by both the manufacturing mechanic and myself.
[2023-12-25 06:58] LABS: Procalcitonin 6.4 ng/mL
--- NOTE | 2023-12-25 07:33 | PM.IMCN ---
HPI Date of Consult Consult date: 12/25/23 Requesting Physician: Anshu Palencia MD Primary Care Provider: Rory Rangel, Consult Narrative Narrative: Leonie Kiser is a 83 year old female FOR[facility]LY [facility], [facility] Past Medical History Medical History (Updated 12/19/23 @ 09:18 by Christine Good APRN) CHF (congestive heart failure) COPD (chronic obstructive pulmonary disease) Hypertension Myocardial infarction Paroxysmal A-fib Pulmonary hypertension Spinal stenosis Family History Family History (Updated 12/18/23 @ 20:57 by Vignesh Munson RN) Father Heart attack Mother Alzheimer's dementia Sibling Alzheimer's dementia Heart attack Social History Social History Smoking packs per day: 0.1 Smoking cigarettes per day: 2.0 Years smoked: 15 Smoking pack-years: 1.50 Smoking status: Former smoker Tobacco type: cigarettes Alcohol intake: never Substance use: never Do You Feel Safe in your Home?: Yes Lack of Transportation: No Lack of Food: Never True Current Housing: I Have Housing Concerned About Future Housing: No Difficulty Paying Gas/Electric Bills: No Difficulty Paying for Meds: No Currently Unemployed: No Education: Never Attended/Kindergarten Only Difficulty w/ Childcare or Family Care: No Spiritual care concerns: No Meds Home Medications and Allergies Home Medications Medication Instructions Recorded Confirmed Type cetirizine 10 mg tablet 10 mg PO DAILY 03/25/23 12/18/23 History fluticasone fur. 100 mcg-umeclid 2 inh inhalation DAILY 03/25/23 12/18/23 History 62.5 mcg-vilant 25 mcg inhalat.powder (Trelegy Ellipta) gabapentin 300 mg capsule 300 mg PO TID 03/25/23 12/18/23 History mirtazapine 15 mg tablet 30 mg PO DAILY 03/25/23 12/18/23 History montelukast 10 mg tablet 10 mg PO DAILY 03/25/23 12/18/23 History nadolol 40 mg tablet 40 mg PO BID 03/25/23 12/18/23 History paroxetine HCl 20 mg tablet 40 mg PO DAILY 03/25/23 12/18/23 History B12 1,000 mcg PO DAILY 12/18/23 12/18/23 History Daily Multivitamin 1 tablet PO DAILY 12/18/23 12/18/23 History Entresto 24 - 26 mg PO Q12H 12/18/23 12/18/23 History Jardiance 10 mg PO DAILY 12/18/23 12/18/23 History Mucinex 600 mg PO Q12H PRN Congestion 12/18/23 12/18/23 History Protonix 40 mg PO DAILY 12/18/23 12/18/23 History acetaminophen 650 mg PO Q8H PRN Pain (Scale 12/18/23 12/18/23 History Score 1-3) azelastine 137 mcg (0.1 %) nasal 137 mcg intranasal BID 12/18/23 12/18/23 History spray aerosol ipratropium-albuterol 0.5 - 3 mg inhalation QID 12/18/23 12/18/23 History megestrol 400 mg/10 mL (10 mL) 400 mg PO BID 12/18/23 12/18/23 History oral suspension metolazone 2.5 mg tablet 2.5 mg PO DAILY 12/18/23 12/18/23 History ondansetron 4 mg disintegrating 4 mg Q6-8H PRN Nausea And Vomiting 12/18/23 12/18/23 History tablet prednisone 10 mg tablet 10 mg PO TID 12/18/23 12/18/23 History Allergies Allergy/AdvReac Type Severity Reaction Status Date / Time Penicillins Allergy Intermediate Rash Verified 12/18/23 20:35 Sulfa (Sulfonamide Allergy Intermediate Rash Verified 12/18/23 20:35 Antibiotics) Vital Signs Vital Signs - 24 hr 12/24/23 07:34 12/24/23 07:34 12/24/23 07:44 Temperature Pulse Rate 115 H 110 H Respiratory Rate 18 18 Blood Pressure Pulse Oximetry 94 Oxygen Delivery Nasal Cannula Oxygen Flow Rate 3 Fraction of Inspired Oxygen 32 12/24/23 09:46 12/24/23 09:28 12/24/23 12:24 Temperature 98.6 F Pulse Rate 115 H 92 Respiratory Rate 22 H 18 Blood Pressure 87/58 L Pulse Oximetry 95 95 Oxygen Delivery Nasal Cannula Oxygen Flow Rate 3 Fraction of Inspired Oxygen 12/24/23 12:36 12/24/23 12:51 12/24/23 14:45 Temperature 98.0 F 97.5 F L Pulse Rate 94 110 H 105 H Respiratory Rate 20 18 18 Blood Pressure 104/48 L 106/55 L Pulse Oximetry 98 97 Oxygen Delivery Oxygen Flow Rate Fraction of Inspired Oxygen 12/24/23 15:43 12/24
[2023-12-25] MEDS: LEVALBUTEROL NEB 1.25 MG/3 ML INHALATION (07:43)
[2023-12-25] MEDS: IPRATROPIUM BR 0.02% INH SOLN 0.5 MG/2.5 ML VIAL INHALATION (07:43)
[2023-12-25] MEDS: FLUTICASONE/UMECLIDIN/VILANTER 100-62.5-25 MCG ELLIPTA 1 PUFF INHALATION (07:44)
--- NOTE | 2023-12-25 07:44 | PM.CCN ---
Critical Care Event Note Summary Code activated: No Narrative: I was on the floor evaluating another patient when the patient suddenly went into and tachyarrhythmia. Nursing staff notified me by the time I arrived to the bedside the patient's blood pressures been obtained and was initially 90/43. The patient's heart rate was as high as 230. I discussed the care with the patient's daughter who agreed with administration of medications and possible cardioversion to stabilize the patient although the patient is a DNR. Initially adenosine was administered to determine ultimately the underlying rhythm. Patient does have a history of paroxysmal atrial fibrillation. Initial dose of adenosine did not significantly improve rhythm and underlying rhythm was still unclear. Second dose of adenosine of 12 mg was administered the patient's heart rate briefly decreased down to 77 and was clearly demonstrating underlying atrial fibrillation. Patient's heart rate rapidly went back up into the 160s to 190s range. Patient's repeat blood pressure at that time was 82/49. An amiodarone bolus was administered and patient's heart rate did come down to the 140s to 180s with initial improvement in the patient's blood pressures to 144/95. Given the patient was still reporting marked symptomatology with atrial fibrillation decision was made to perform synchronized cardioversion. Patient received 25 mg of IV fentanyl and patient's blood pressures initially remained stable. However but pressures did drop on repeat evaluation. Blood pressures were 52/40. A 2nd amiodarone bolus was started until I could discuss the patient's care with the daughter and confirm that she would want cardioversion. Given symptomatology and affect the patient wanted us to do something to improve her symptoms the cardioversion was attempted. The patient received [address] St charge of 200 joules with immediate return to sinus rhythm. Blood pressure after cardioversion was still low and patient was given reversal with Narcan. Patient's blood pressure still remain low despite the patient being awake and communicating clearly with staff and alert oriented. Thusly the patient received a 250 mL bolus followed by 500 mL bolus when blood pressures remain low. Repeat blood pressure after 2nd bolus was 120/86. We had difficulty obtaining pulse ox is throughout resuscitation due to poor perfusion. But would intermittently get pulse ox readings in the upper 80s and low 90s. The patient was not tolerating BiPAP and had been placed on a non-rebreather. After cardioversion patient was placed back on BiPAP. Patient felt the BiPAP was uncomfortable and given both the patient's desire for comfort and the daughters verbalized report I encouraged them to contact other family members and evaluate goals of care. And multiple conversations the patient's daughter. The daughter decided she would likely want to proceed with comfort care of care in that manner but wanted to have other family members at bedside before making this official. This was signed out to the daytime hospitalist at the end of my shift. Repeat labs including CBC and electrolyte panel were pending at the transition of care. 52 minutes spent in critical care activities Due to a high probability of clinically significant, life threatening deterioration, the patient required my highest level of preparedness to intervene emergently and I personally spent this critical care time directly and personally managing the patient. This critical care time included obtaining a history; examining the patient; pulse oximetry; ordering and review of studies; arranging urgent treatment with development of a management plan; evaluation of patient's response to treatment; frequent reassessment; and discussions with other providers. It was exclusive of separately billable procedures and treating other patients and teaching time. Please see Assessment and Plan section and the rest of the note for
--- NOTE | 2023-12-25 07:44 | PM.IMPN ---
Progress Note: A&P Assessment and Plan (1) Pneumonia: Code(s): J18.9 - Pneumonia, unspecified organism Status: Acute Assessment and Plan: Recent diagnosis for pneumonia CXR showing subsegmental right basilar atelectasis/pneumonia, interstitial lung disease. Patient given 1 time dose of IV Levaquin in the ER, doses Continue neb treatments Currently on 3L NC Continue Mucinex, Azelastine, and Trelegy inhaler 12/20/23: Continue oral Levaquin Continue current treatment plan 12/21/23: Continue with current treatment plan. 12/22/2023 agree and continue with current tx plan 12/23/2023 continue with tx plan 12/24/2023 -condition guarded patient requiring 4 L NC, increased sputum production, RR>26 - (2) Abnormal chest x-ray: Code(s): R93.89 - Abnormal findings on diagnostic imaging of other specified body structures Status: Acute Assessment and Plan: see above (3) CHF (congestive heart failure): Code(s): I50.9 - Heart failure, unspecified Status: Chronic Assessment and Plan: 12/19/23: Continue Jardiance, Metolazone, and Sacubitril/Valsartan 12/20/23: No change to current treatment plan 12/22/2023 continue tx plan 12/23/2023: continue with plan 12/24/2023, change to current condition, hold Jardiance, Metolazone, and Sacubitril/Valsartan (4) COPD (chronic obstructive pulmonary disease): Code(s): J44.9 - Chronic obstructive pulmonary disease, unspecified Status: Chronic Assessment and Plan: 12/19/23: Continue nebulizer breathing treatments 12/20/23: No change to current treatment plan 12/22/2023 continue current tx plan 12/23/2023: continue with current tx plan 12/24/2023: continue neb tx as needed for shortness of breath, and wheezing (5) Dehydration: Code(s): E86.0 - Dehydration Status: Acute Assessment and Plan: 12/19/23: Patient reported not eating or drinking fluids at home B/P initially 54/45, Na+ 133, Chloride 91 Patient given 2L NS while in ER and started on IVF 12/20/23: Encourage food and fluid continue IVF No change to current treatment plan 12/21/23: Continue with current treatment plan 12/22/2023 Pt eating, d/c IVF, continue to encourage food/fluid 12/23/2023: pt reports decreased appetite, continue to encourage food and fluid 12/24/2023: (6) Generalized weakness: Code(s): R53.1 - Weakness Status: Acute Assessment and Plan: 12/19/23: PT and OT ordered 12/20/23: No change to current treatment plan 12/22/2023 Continue pt tx, plan to dc to SNF in the a.m. 12/23/2023: pt plan was to dispo to home, at time of discharge pt became SOB, with nausea, vomiting, reporting she was not ready to be discharged, due to not feeling well and SOB, -bedside CXR, Duo Nebs changed q4, check CTA in the a.m I am concerned for PE, pt did not appear well after second visit, she was tearful, with ongoing cough with increased sputum production, mild acute respiratory distress. will hold for further testing. plan to dispo xiomara, after testing 12/24/2023: pt seen this am, condition has changed to guarded, she is in mild resp, distress pursed lip breathing, denies chest pain, admits to SOB without exertion. Plan hold b/p medication, cta pending, o2 titration. may consider bi-pap if pt continues with SOB. Discussion with pt and family she does not desire intubation at this time. 12/25/2023: 0700 plan has been changed to DNR with comfort care as decided by pt and family at this time (7) Hypertension: Code(s): I10 - Essential (primary) hypertension Status: Chronic Assessment and Plan: 12/19/23: B/P still labile Continue to hold Nadolol 12/20/23: No change to current treatment plan 12/22/2023 continue to hold b/p medication b/p 107/53 12/23/2023: restart nadolol with holding parameters, b/p is 147/92 12/24/2023, patient with hypotension hold nadolol
--- NOTE | 2023-12-25 08:39 | PCPTNOTE ---
PT orders were cancelled out due to pt going comfort care measures only. D/C PT services per dr orders. Plan of care inactive.
--- NOTE | 2023-12-25 08:39 | PCOTNOTE ---
Patient was placed on comfort care measures and OT was cancelled. Plan of care has been marked to inactive status. Patient is d/c from OT and no further therapy at this time.
[2023-12-25] MEDS: MORPHINE SULFATE INJ (*CRX) 50 MG in SODIUM CHLORIDE 0.9% IV 95 ML IV CONT (08:53)
[2023-12-25] MEDS: LORazepam INJ (*CRX) 2 MG/ML VIAL IV PUSH (08:54)
--- NOTE | 2023-12-25 13:19 | PC.NURSE ---
This patient, Leonie Kiser, was transferred to [facility] on 12/25/23 at 1320. Personal belongings sent with patient. Report given to Kelsea AMATO. Appropriate documentation sent with patient.
--- NOTE | 2023-12-25 15:51 | PM.DS ---
DS: Admitting Diagnosis Discharge Date 12/25/2023: discharged to hospice Admitting Diagnosis Generalized weakness DS: Discharge Diagnosis Discharge Diagnosis (1) Acute respiratory failure, unspecified whether with hypoxia or hypercapnia: Code(s): J96.00 - Acute respiratory failure, unspecified whether with hypoxia or hypercapnia Status: Acute (2) Pneumonia: Code(s): J18.9 - Pneumonia, unspecified organism Status: Acute (3) Paroxysmal A-fib: Code(s): I48.0 - Paroxysmal atrial fibrillation Status: Chronic (4) Hypertension: Code(s): I10 - Essential (primary) hypertension Status: Chronic (5) COPD (chronic obstructive pulmonary disease): Code(s): J44.9 - Chronic obstructive pulmonary disease, unspecified Status: Chronic (6) Generalized weakness: Code(s): R53.1 - Weakness Status: Acute (7) Dehydration: Code(s): E86.0 - Dehydration Status: Acute (8) Abnormal chest x-ray: Code(s): R93.89 - Abnormal findings on diagnostic imaging of other specified body structures Status: Acute (9) CHF (congestive heart failure): Code(s): I50.9 - Heart failure, unspecified Status: Chronic DS: Summary Hospital Course Reason for hospitalization: 83-year-old female presents to the ED with generalized weakness Hospital Course: Patient reported recent had a diagnosis of pneumonia was placed on route of the hospitalization, she reported occasional diarrhea, no abdominal pain, no fever chills.? Reports poor oral intake and poor hydration.? She was evaluated in the [place] [address], lactic acid of 2.1 with no specific findings on chest x-ray which was interpreted atelectasis versus pneumonia.? ED workup revealed, iV hydration started, and a request for admission for further hydration was placed as patient blood pressure is borderline low 12/19/23? 08:50 Interval history: This is an 83 year old female with a significant past medical history of CHF, COPD, HTN, [place], Paroxysmal A-fib, pulmonary hypertension, spinal stenosis who presented to the hospital with complaints of generalized weakness. She was recently diagnosed with pneumonia and reports decreased appetite and fatigue. She was hypotensive on admission, however responded well to fluid resuscitation. Work up in hospital includes CXR which revealed subsegmental right basilar atelectasis vrs pneumonia, interstitial lung disease without edema. Labs revealed WBC 16.2,Na+ 133, Chloride 91, BUN 43, Creatitinine 1.20, eGFR 43, creatinine clearance 28, Lactic acid 2.1>1.2, Liver enzymes were normal, Magnesium 2.2, Troponin negative, proBNP 1410. UA shown 3+ glucose, otherwise unremarkable. Respiratory panel negative for Flu, RSV, Covid. Blood cultures obtained and are pending. Patient was given 2L NS, started on IVF, given zofran, and started on Levaquin in the ER.? On examination today patient is alert and oriented x3, sitting in the chair. She denies any fever, chills, chest pain, abdominal pain, nausea, vomiting, diarrhea, or headache. She endorses lightheadedness and dizziness when getting up, shortness of breath and a non productive cough. VSS, she is afebrile, currently on 3L NC. Lungs today course throughout bilaterally. 12/20/23: On examination today patient is still reporting that she does not feel good. She states she did not sleep well because she had to get up and urinate often. Lungs today sound a lot better. She still has some crackles in the bases.? VSS, she is afebrile, currently on 3L NC. Labs today reveal WBC 14.8, Albumin 3.4, otherwise essentially unremarkable. Blood cultures showing no growth on preliminary read. Continue Levaquin oral for a total of 5 days. 12/21/23: Patient feeling a little bit better today. She has only taken a few steps with PT/OT today and her appetite remains decreased. Labs today show white blood count of 12.7, hemoglobin 11.8, albumin 3.3.? Blood cu
--- NOTE | 2023-12-25 18:05 | PM.IMPN ---
Progress Note: A&P Assessment and Plan (1) Pneumonia: Code(s): J18.9 - Pneumonia, unspecified organism Status: Acute (2) Abnormal chest x-ray: Code(s): R93.89 - Abnormal findings on diagnostic imaging of other specified body structures Status: Acute (3) CHF (congestive heart failure): Code(s): I50.9 - Heart failure, unspecified Status: Chronic (4) COPD (chronic obstructive pulmonary disease): Code(s): J44.9 - Chronic obstructive pulmonary disease, unspecified Status: Chronic (5) Dehydration: Code(s): E86.0 - Dehydration Status: Acute (6) Generalized weakness: Code(s): R53.1 - Weakness Status: Acute (7) Hypertension: Code(s): I10 - Essential (primary) hypertension Status: Chronic (8) Paroxysmal A-fib: Code(s): I48.0 - Paroxysmal atrial fibrillation Status: Chronic Plan Chart reviewed. CTA negative for PE but showing extensive bronchiectasis as well as extensive groundglass opacities possibly PNA, edema or more chronic findings. Suspect patient has PNA. She went into AFib overnight required synchronized cardioversion due to that she was unstable. Patient seen and examined. Case discussed with BUGGY DRIVER. Spoke with the family with the BUGGY DRIVER to discuss options. They have decided to proceed with comfort measures. Plan made with BUGGY DRIVER and orders for comfort were written. Care coordination to arrange for inpatient hospice. All questions answered to the satisfaction of the family Subjective Date/time seen: 12/25/23 18:05 Interval history: 83yo female with CHF, COPD, [place] and pAFib here for generalized weakness. Patient was seen and examined with the BUGGY DRIVER. Patient is responsive but somnolent. Overnight event noted. Exam Narrative: AF 97.6 96/41 94 12 90% HFNC Gen - appears comfortable lying semi-recumbent in bed Chest - coarse BS anteriorly CV - Regular with extra beats Abd - Soft Ext - No edemat Skin - Warm and dry Objective Data Vital Signs Vital Signs: Vital Signs - 24 hr 12/24/23 19:16 12/24/23 19:20 12/24/23 20:15 Temperature 98.5 F Pulse Rate 90 139 H 146 H Respiratory Rate 18 32 H 33 H Blood Pressure 151/90 H Pulse Oximetry 91 96 Oxygen Delivery BiPAP Oxygen Flow Rate Fraction of Inspired Oxygen 12/24/23 20:17 12/24/23 20:54 12/24/23 21:28 Temperature 97.6 F Pulse Rate 145 H 149 H 146 H Respiratory Rate 33 H 18 Blood Pressure 161/81 H Pulse Oximetry 96 94 Oxygen Delivery BiPAP Oxygen Flow Rate Fraction of Inspired Oxygen 12/24/23 21:44 12/24/23 23:10 12/24/23 23:27 Temperature Pulse Rate 127 H 119 H 121 H Respiratory Rate 34 H 31 H Blood Pressure Pulse Oximetry 94 Oxygen Delivery BiPAP Oxygen Flow Rate Fraction of Inspired Oxygen 12/24/23 20:00 12/25/23 00:11 12/24/23 22:00 Temperature 97.8 F Pulse Rate 120 H 111 H Respiratory Rate 18 Blood Pressure 95/50 L Pulse Oximetry 94 Oxygen Delivery BiPAP Oxygen Flow Rate Fraction of Inspired Oxygen 40 12/24/23 23:00 12/25/23 00:00 12/25/23 03:29 Temperature Pulse Rate 117 H 126 H 207 H Respiratory Rate Blood Pressure Pulse Oximetry Oxygen Delivery Oxygen Flow Rate Fraction of Inspired Oxygen 12/25/23 02:37 12/25/23 04:36 12/25/23 04:38 Temperature 97.5 F L 97.5 F L Pulse Rate 112 H 77 77 Respiratory Rate 28 H 18 18 Blood Pressure 90/38 L 90/38 L Pulse Oximetry 94 94 94 Oxygen Delivery BiPAP Oxygen Flow Rate Fraction of Inspired Oxygen 12/25/23 03:30 12/25/23 03:37 12/25/23 03:38 Temperature Pulse Rate 217 H 180 H 120 H Respiratory Rate 20 Blood Pressure Pulse Oximetry 95 Oxygen Delivery Oxygen Flow Rate Fraction of Inspired Oxygen 12/25/23 03:39 12/25/23 03:40 12/25/23 03:41 Temperature Pulse Rate 180 H 77 177 H Respiratory Rate Blood Pressure 90/53 L 110/75 Pulse Oximetry Oxygen
[2023-12-28 04:35] LABS: Pneumococcal Antigen Urine Not Detected (Not Detected)
[2023-12-28 23:18] LABS: Legionella pneumophila Ag Ur Not Detected (Not Detected)
== END 2023-12-25 15:53 | disposition hospice, inpatient (51) | DRG 193 ==
LOC: ANHED 19:08 → ANH2MED 19:32 → ANHIMU 12-24 20:22 → ANH3MEDSUR 12-25 15:51 → ANHIMU 12-28 12:57
PROVIDERS: Internal Medicine; Nurse Practitioner Acute Care; Student in an Organized Health Care Education/Training Program; Admitting Provider Family Medicine; Emergency Provider Emergency Medicine; PCP Internal Medicine; Visit Provider Nurse Practitioner
DX: J18.9 Pneumonia, unspecified organism (principal); E43 Unspecified severe protein-calorie malnutrition; J96.00 Acute respiratory failure, unspecified whether with hypoxia or hypercapnia; J44.0 Chronic obstructive pulmonary disease with (acute) lower respiratory infection; I11.0 Hypertensive heart disease with heart failure; I50.9 Heart failure, unspecified; I48.0 Paroxysmal atrial fibrillation; I27.20 Pulmonary hypertension, unspecified; M48.00 Spinal stenosis, site unspecified; E86.0 Dehydration; Z20.822 Contact with and (suspected) exposure to COVID-19; I25.2 Old myocardial infarction; Z51.5 Encounter for palliative care; Z68.21 Body mass index [BMI] 21.0-21.9, adult
CPT/HCPCS: 36415; 36600; 71045; 71275; 80053; 81001; 81003; 82805; 83605; 83735; 83880; 84145; 84484; 85025; 85055; 87040; 87449; 87635; 87637; 87641; 87899; 93005; 94002; 94640; 96361; 96365; 96372; 97110; 97116; 97161; 97166; 97530; 97535; 99285; A9270; G0378; J0153; J0282; J0692; J1650; J1940; J1956; J2060; J2270; J2310; J2930; J3010; J7030; J7040; J7050; Q9967

== ENCOUNTER 2023-12-25 15:54 | HOS | payer OTHER, MEDICARE, SELFPAY ==
[2023-12-25] MEDS: MORPHINE 50 MG/NS 100ML (*CRX) 50 MG/100 ML BAG IV CONT (15:54)
[2023-12-25 16:04] VITALS: O2SAT 90
[2023-12-25] MEDS: GLYCOPYRROLATE INJ (*SP) 0.2 MG/ML VIAL 0.1 MG IV PUSH (17:49)
[2023-12-25] MEDS: PROCHLORPERAZINE EDISYLATE 10 MG/2 ML VIAL IV PUSH (17:49)
[2023-12-25] MEDS: LORazepam INJ (*CRX) 2 MG/ML VIAL 1 MG IV PUSH (17:50)
[2023-12-25 20:00] VITALS: O2SAT 90
[2023-12-25 23:34] VITALS: BP 58/31; PULSE 52; RESP 12; TEMP 36; O2SAT 42
--- NOTE | 2023-12-26 00:14 | PC.NURSE ---
patient has verified x2 RN auscultation Yolande Mir Rn Deana Kee RN. laundry tech Jesenia Sagastume RN notifying [facility].
--- NOTE | 2023-12-26 17:12 | PM.IMHP ---
H&P: HPI History of Present Illness Date/Time: 12/26/23 17:12 Chief Complaint: This 83-year-old female was admitted to [facility] December 18 with pneumonia and congestive heart failure. In spite of treatment with antibiotics and diuretics as well as other medications for her heart failure she was unable to be discharged due to nausea vomiting worsening dyspnea. She was placed on comfort measures due to worsening status and admitted to inpatient hospice service December 25. Her uncontrolled dyspnea was adequately controlled on continuous IV morphine. Review of Systems Review of Systems: ROS unobtainable: Yes unobtainable due to medical condition PMFSH Past Medical History Medical History CHF (congestive heart failure) COPD (chronic obstructive pulmonary disease) Hypertension Myocardial infarction Paroxysmal A-fib Pulmonary hypertension Spinal stenosis Family History Family History Father Heart attack Mother Alzheimer's dementia Sibling Alzheimer's dementia Heart attack Social History Social History Smoking packs per day: 0.1 Smoking cigarettes per day: 2.0 Years smoked: 15 Smoking pack-years: 1.50 Smoking status: Former smoker Tobacco type: cigarettes Alcohol intake: never Substance use: never Do You Feel Safe in your Home?: Yes Lack of Transportation: No Lack of Food: Never True Current Housing: I Have Housing Concerned About Future Housing: No Difficulty Paying Gas/Electric Bills: No Difficulty Paying for Meds: No Currently Unemployed: No Education: Never Attended/Kindergarten Only Difficulty w/ Childcare or Family Care: No Spiritual care concerns: No Meds Home Medications and Allergies Home Medications Medication Instructions Recorded Confirmed Type cetirizine 10 mg tablet 10 mg PO DAILY 03/25/23 12/18/23 History fluticasone fur. 100 mcg-umeclid 2 inh inhalation DAILY 03/25/23 12/18/23 History 62.5 mcg-vilant 25 mcg inhalat.powder (Trelegy Ellipta) gabapentin 300 mg capsule 300 mg PO TID 03/25/23 12/18/23 History mirtazapine 15 mg tablet 30 mg PO DAILY 03/25/23 12/18/23 History montelukast 10 mg tablet 10 mg PO DAILY 03/25/23 12/18/23 History nadolol 40 mg tablet 40 mg PO BID 03/25/23 12/18/23 History paroxetine HCl 20 mg tablet 40 mg PO DAILY 03/25/23 12/18/23 History B12 1,000 mcg PO DAILY 12/18/23 12/18/23 History Daily Multivitamin 1 tablet PO DAILY 12/18/23 12/18/23 History Entresto 24 - 26 mg PO Q12H 12/18/23 12/18/23 History Jardiance 10 mg PO DAILY 12/18/23 12/18/23 History Mucinex 600 mg PO Q12H PRN Congestion 12/18/23 12/18/23 History Protonix 40 mg PO DAILY 12/18/23 12/18/23 History acetaminophen 650 mg PO Q8H PRN Pain (Scale 12/18/23 12/18/23 History Score 1-3) azelastine 137 mcg (0.1 %) nasal 137 mcg intranasal BID 12/18/23 12/18/23 History spray aerosol ipratropium-albuterol 0.5 - 3 mg inhalation QID 12/18/23 12/18/23 History megestrol 400 mg/10 mL (10 mL) 400 mg PO BID 12/18/23 12/18/23 History oral suspension metolazone 2.5 mg tablet 2.5 mg PO DAILY 12/18/23 12/18/23 History ondansetron 4 mg disintegrating 4 mg Q6-8H PRN Nausea And Vomiting 12/18/23 12/18/23 History tablet prednisone 10 mg tablet 10 mg PO TID 12/18/23 12/18/23 History Allergies Allergy/AdvReac Type Severity Reaction Status Date / Time Penicillins Allergy Intermediate Rash Verified 12/18/23 20:35 Sulfa (Sulfonamide Allergy Intermediate Rash Verified 12/18/23 20:35 Antibiotics) Vital Signs Vital Signs - 24 hr 12/25/23 20:00 12/25/23 23:34 Temperature 96.8 F L Pulse Rate 52 L Respiratory Rate 12 Blood Pressure 58/31 L Pulse Oximetry 90 42 L Oxygen Delivery Nasal Cannula Oxygen Flow Rate 2 Exam Narrative: prior to my examination. Assessment an
--- NOTE | 2023-12-26 17:17 | P.DN_ITS ---
Discharge Summary Date and Time Date of : 12/26/23 Time of : 00:12 Provider Pronounced By: Yolande Mason Probable Cause of Probable Cause of : Acute hypoxic respiratory failure due to pneumonia congestive heart failure and COPD Summary Hospital Course: Admitted to inpatient hospice service due to uncontrolled dyspnea. Medications titrated to comfort. Mrs. Kiser peacefully. Additional Data Confirmation of as documented by pronouncing clinician: Palpable Pulses, Response to Stimuli, Heart Tones and Breath Sounds Name of Provider Notified: Atilio Zeng Time Provider Notified: 00:45 Provider Requests Autopsy: No Family Requests Autopsy: No [employer] Notified: Yes Date [facility] Notified of : 12/26/23 Time [facility] Notified of : 00:33
== END 2023-12-26 00:12 | disposition expired | DRG 951 ==
PROVIDERS: Admitting Provider Internal Medicine; PCP Internal Medicine; Visit Provider Internal Medicine
DX: Z51.5 Encounter for palliative care (principal); J96.01 Acute respiratory failure with hypoxia; J18.9 Pneumonia, unspecified organism; I50.9 Heart failure, unspecified; J44.9 Chronic obstructive pulmonary disease, unspecified; I11.0 Hypertensive heart disease with heart failure; I48.0 Paroxysmal atrial fibrillation; M48.00 Spinal stenosis, site unspecified; I25.2 Old myocardial infarction; Z87.891 Personal history of nicotine dependence
CPT/HCPCS: A9270; J0780; J1596; J2060; J2270